=== PATIENT | female | born 1945 | race Caucasian/White ===

== ENCOUNTER 2017-12-20 12:19 | Outpatient (CLI) | payer MEDICARE ==
[2017-12-20 14:29] LABS: Hemoglobin 14.7 g/dL (12.0-16.0); Mean Corpuscular HGB CONC 32.4 g/dL (32.0-36.0); Mean Corpuscular Hemoglobin 34.6 pg (27.0-31.0); Mean Platelet Volume 10.6 fL (7.4-10.4); Platelet Count 221 thou/uL (130-400); RBC Distribution Width 14.5 % (11.5-14.5); Red Blood Cell (RBC) Count 4.25 mill/uL (4.20-5.40); White Blood Cell (WBC) Count 6.9 thou/uL (4.8-10.8)
[2017-12-20 14:49] LABS: Anion Gap 12 mmol/L (10-20); BUN (Urea Nitrogen) 8 mg/dL (9.8-20.1); Calc. Creatinine Clearance 0 mL/min (70-130); Calcium 9.4 mg/dL (7.8-10.44); Carbon Dioxide 23 mmol/L (23-31); Chloride 106 mmol/L (98-107); Estimated GFR-MDRD 72; Glucose 93 mg/dL (83-110); Potassium 4.4 mmol/L (3.5-5.1); Sodium 137 mmol/L (136-145)
== END 2017-12-20 12:20 | disposition home or self-care (01) ==
LOC: LABBT 12:19
PROVIDERS: ATTEND Orthopaedic Surgery
DX: Z01.812 Encounter for preprocedural laboratory examination (principal); M17.12 Unilateral primary osteoarthritis, left knee
CPT/HCPCS: 80048; 85027; 86850; 86900; 86901; 87081

== ENCOUNTER 2017-12-27 05:43 | Inpatient (IN) | payer MEDICARE ==
[2017-12-26 09:11] VITALS: BMI 31.8
[2017-12-27] MEDS ORDERED: Clindamycin/D5W 600 mg/50 ml Premix Bag ONE (05:58)
[2017-12-27] MEDS ORDERED: Fentanyl 100 MCG/2 ML VIAL ONE ×3 (06:14→11:46)
[2017-12-27] MEDS ORDERED: Ropivacaine 0.2% HCl/PF 20 ML ONE (06:14)
[2017-12-27] MEDS ORDERED: Midazolam HCl 2 mg/2 ml Vial ONE (06:14)
[2017-12-27] MEDS ORDERED: Vancomycin HCl 1.5 GM in Sodium Chloride 0.9% 250 ML 300 ML IVPB SCH ×3 (06:15→20:00)
[2017-12-27 06:38] LABS: PTT 26.7 SEC (22.9-36.1)
[2017-12-27 06:43] LABS: Prothrombin Time 12.9 SEC (12.0-14.7)
[2017-12-27] MEDS ORDERED: Bupivacaine/Epinephrine 0.25% 30 ML VIAL ONE (06:51)
[2017-12-27] MEDS ORDERED: Promethazine HCl 25 MG/ML VIAL IM PRN ×3 (07:11→09:07)
[2017-12-27] MEDS ORDERED: traMADol HCl 50 MG TAB PO PRN ×3 (07:11→09:07)
[2017-12-27] MEDS ORDERED: HYDROcodone/Acetaminophen 5/325 mg Tablet PO PRN (07:11)
[2017-12-27] MEDS ORDERED: Ondansetron HCl/PF 4 MG/2 ML Vial IVP PRN ×3 (07:11→09:07)
[2017-12-27] MEDS ORDERED: Zolpidem Tartrate 5 MG TAB PO PRN ×2 (07:11→09:07)
[2017-12-27] MEDS ORDERED: Fentanyl 100 MCG/2 ML VIAL IV PRN (07:12)
[2017-12-27] MEDS ORDERED: Promethazine HCl 25 MG/ML VIAL SLOW IVP PRN (07:57)
[2017-12-27] MEDS ORDERED: Morphine 10 MG/ML VIAL ONE (08:00)
[2017-12-27] MEDS ORDERED: Ferrous Gluconate 324 MG TAB PO SCH (09:07)
[2017-12-27] MEDS ORDERED: Senokot S 8.6-50 MG TAB PO SCH (09:07)
[2017-12-27] MEDS ORDERED: HYDROcodone/Acetaminophen 10/325 mg Tablet PO PRN ×2 (09:07)
[2017-12-27] MEDS ORDERED: Multivitamin W/ Minerals 1 TAB PO SCH (09:07)
[2017-12-27] MEDS ORDERED: Fentanyl 100 MCG/2 ML VIAL SLOW IVP PRN ×2 (09:07)
[2017-12-27] MEDS ORDERED: Acetaminophen 325 MG TAB PO PRN (09:07)
[2017-12-27] MEDS ORDERED: diphenhydrAMINE 25 MG CAP PO PRN (09:07)
[2017-12-27] MEDS ORDERED: Ketorolac Tromethamine 30 MG/ML VIAL ONE (09:15)
--- NOTE | 2017-12-27 10:59 | OP ---
DATE OF PROCEDURE: 12/27/2017 PREOPERATIVE DIAGNOSIS: Left knee osteoarthritis. POSTOPERATIVE DIAGNOSIS: Left knee osteoarthritis. PROCEDURE PERFORMED: Left total knee arthroplasty. STAFF: Laurent Jefferson M.D. ENVIRONMENTAL CONSULTANT: Socrates Wade PA-C. ANESTHESIA: [place]. The patient received a LMA with an adductor canal catheter with single sciatic shot. ESTIMATED BLOOD LOSS: 100 mL. ANTIBIOTICS: Clindamycin 600, vancomycin 1.5 grams. TOURNIQUET TIME: 63 minutes at 300 mmHg. The patient received TXA 1 gram. IMPLANTS: Misael Triathlon size 4 femur, size 3 tibia, 9 CS X3 poly and S27 patella. COMPLICATIONS: None. HISTORY OF PRESENT ILLNESS: Ms. Carter is a pleasant 72-year-old female who is well known to my practice. The patient had knee pain treated with injections which did not give her complete relief. The patient had desired a left knee arthroplasty. She understood the risks and benefits to include pain, scar, bleeding, infection, damage to vital structures, decreased range or strength, failure of the procedure, continued pain despite surgical intervention. The patient understood the risks and benefits and elected to proceed. PROCEDURE IN DETAIL: Timeout was performed designating the patient's left lower extremity as the operative site. Based on site, consents, markings, after completion of timeout, the patient's left lower extremity was prepped and draped in sterile fashion. Tourniquet was brought up for a total of 63 minutes. The patient had anterior medial patellar arthrotomy. We did our medial soft tissue release and excised the patella, everted patella, mapped out the distal femur, cut 0 degrees varus valgus 8-8 with 4 degrees of anterior slope. We then removed the portion of lateral meniscus, placed our external rotation guide in place, pinned it at 3 degrees of external rotation in line with epicondylar axis. We sized to a 4, removed it, placed our 4 cutting block , cut anterior, posterior chamfer cuts. Removed bone, osteophytes. We then put our pickle fork in position taking a portion of lateral meniscus, released the PCL took down the ACL, exposed the tibia. We pinned our tray into place. We cut 4 degrees of slope 1 and 6 mm respectively. We removed this, I did take a rasp and reshaped on the medial side a little bit to help with our position of our implant. We then decompressed the medial osteophytes in the femoral gutter as well as the medial tibia. We placed lamina plant safety engineer, removed our medial and lateral menisci. We used our osteotomes to remove our bone fragments , decompressed the PCL released it. We then pinned our size 3 tibial tray into position based on the tibial shaft anterior 1/3 of the tibial tubercle, placed our 9 mm poly, placed our 4 femur. We had good tracking, slight of an extension which we released the PCL afterwards. We then everted patella, measured about 22, cut about 19-20, cut to 10 mm removed the excess bone. We then drilled, placed our S27 patella, it tracked well. Based on position I liked the overall alignment. We then removed our implants, we drilled our lugs for our femur, removed our implants, cut our keel for tibia. We washed. We cemented in our tibia, placed our poly, cemented our femur, removed excess cement, cemented our patella. We removed excess cement from this, we then washed the joint, removed excess cement, closed the arthrotomy with #2 Vicryl, 2 Quill, 0 Quill, 2-0 Quill, and glue. The tourniquet was let down at 63 minutes. The patient will be admitted to [facility] [facility] for postoperative protocol. GRISELDA
[2017-12-27] MEDS: Sodium Chloride 0.9% 1,000 ML IV SCH ×2 (11:52→18:09)
[2017-12-27] MEDS: Aspirin 81 mg Enteric Coated Tablet PO SCH ×2 (11:52→20:20)
[2017-12-27] MEDS: Clindamycin/D5W 600 MG in Premix Bag 1 BAG IVPB SCH ×2 (12:27→17:42)
[2017-12-27] MEDS: Ketorolac Tromethamine 30 MG/ML VIAL IVP SCH ×2 (12:30→17:42)
[2017-12-27] MEDS ORDERED: Milk Of Magnesia 30 ML UDCUP PO PRN (12:31)
[2017-12-27] MEDS ORDERED: Bisacodyl 10 MG SUPP PR PRN (12:31)
[2017-12-27] MEDS ORDERED: Chloraseptic Spray 180 ml Bottle PO PRN (12:31)
[2017-12-27] MEDS ORDERED: Mag-Al 1200 mg/1200 mg/30 ML UDCUP PO PRN (12:31)
[2017-12-27] MEDS ORDERED: hydrALAZINE 20 MG/ML VIAL SLOW IVP PRN (12:31)
[2017-12-27] MEDS ORDERED: Loperamide HCl 2 MG CAP PO PRN (12:31)
[2017-12-27] MEDS ORDERED: Ondansetron ODT 4 MG TAB PO PRN (12:31)
[2017-12-27] MEDS ORDERED: Artificial Tears 18 DROP/0.9 ML EA EYE PRN (12:31)
[2017-12-27] MEDS ORDERED: Sodium Chloride 0.65% Nasal 44 ML BOT EA NARE PRN (12:31)
[2017-12-27] MEDS ORDERED: Eucerin (Mineral Oil/Petrolatum,White) 30 gm Jar TOP PRN (12:31)
--- NOTE | 2017-12-27 13:20 | RAD ---
PORTABLE LEFT KNEE 2 VIEWS: HISTORY: Postop total left knee replacement. FINDINGS: There are recent postop changes of total knee arthroplasty in good position and alignment. Soft tiss ue air is present. POS: H
--- NOTE | 2017-12-27 13:27 | PDOC.PN ---
- Subjective Encounter Start Date: 12/27/17 Encounter Start Time: 13:00 -: old records requested/rev Patient seen and examined. No new complaints. No overnight events - Objective Resuscitation Status: Resuscitation Status FULL:Full Resuscitation MAR Reviewed: Yes Vital Signs & Weight: Vital Signs (12 hours) Temp Pulse Resp BP 12/27/17 12:20 97.2 F L 80 16 114/78 Weight Weight 180 lb I&O: 12/26/17 12/27/17 12/28/17 06:59 06:59 06:59 Intake Total 625 Output Total 600 Balance 25 Radiology Reviewed by me: Yes (knee xray) EKG Reviewed by me: Yes (nsr) Phys Exam - Physical Examination Constitutional: NAD HEENT: PERRLA, moist MMs, sclera anicteric Neck: no JVD, supple Respiratory: no wheezing, no rales, no rhonchi Cardiovascular: RRR, no significant murmur, no rub Gastrointestinal: soft, non-tender, no distention, positive bowel sounds Musculoskeletal: no edema, pulses present left knee with dressing, nerve block+, sparks+ Neurological: non-focal, normal sensation, moves all 4 limbs Lymphatic: no nodes Psychiatric: normal affect, A&O x 3 Skin: no rash, normal turgor, cap refill <2 seconds Dx/Plan (1) Status post total left knee replacement Code(s): Z96.652 - PRESENCE OF LEFT ARTIFICIAL KNEE JOINT Status: Acute (2) Anxiety and depression Code(s): F41.9 - ANXIETY DISORDER, UNSPECIFIED; F32.9 - MAJOR DEPRESSIVE DISORDER, SINGLE EPISODE, UNSPECIFIED Status: Chronic (3) GERD (gastroesophageal reflux disease) Code(s): K21.9 - GASTRO-ESOPHAGEAL REFLUX DISEASE WITHOUT ESOPHAGITIS Status: Chronic (4) Hiatal hernia Code(s): K44.9 - DIAPHRAGMATIC HERNIA WITHOUT OBSTRUCTION OR GANGRENE Status: Chronic (5) Obesity (BMI 30.0-34.9) Code(s): E66.9 - OBESITY, UNSPECIFIED Status: Chronic - Plan cont current plan of care, plan discussed w/ family, PT/OT, DVT proph w/SCDs * code status discussed, pt is full code and her is MPOA * continue aspirin for DVT prophylaxis as per protocol * continue protonix for GI prophylaxis * nerve bloc as per anesthesia * PT/OT as per [facility] protocol treatment * Home medication reconciled * medication reviewed as below * symptomatic treatment. Review of Systems - Review of Systems Constitutional: negative: fever, chills, sweats, weakness, malaise, other ENT: negative: Ear Pain, Ear Discharge, Nose Pain, Nose Discharge, Nose Congestion, Mouth Pain, Mouth Swelling, Throat Pain, Throat Swelling, Other Respiratory: negative: Cough, Dry, Shortness of Breath, Hemoptysis, SOB with Excertion, Pleuritic Pain, Sputum, Wheezing Cardiovascular: negative: chest pain, palpitations, orthopnea, paroxysmal nocturnal dyspnea, edema, light headedness, other Gastrointestinal: negative: Nausea, Vomiting, Abdominal Pain, Diarrhea, Constipation, Melena, Hematochezia, Other Genitourinary: negative: Dysuria, Frequency, Incontinence, Hematuria, Retention , Other Musculoskeletal: negative: Neck Pain, Shoulder Pain, Arm Pain, Back Pain, Hand Pain, Leg Pain, Foot Pain, Other Skin: negative: Rash, Lesions, Kofi, Bruising, Other - Medications/Allergies Allergies/Adverse Reactions: Allergies Allergy/AdvReac Type Severity Reaction Status Date / Time Penicillins Allergy Verified 12/26/17 09:12 Hibiclens Allergy Uncoded 12/26/17 09:33 Medications: Current Medications Acetaminophen (Tylenol) 650 mg PO Q4H PRN PRN Reason: MEYERS/ T > 101F; Mild Pain (1-3) Hydrocodone Bitart/Acetaminophen ([place] 5/325) 1 tab PO Q4H PRN PRN Reason: Mild Pain (1-3) Hydrocodone Bitart/Acetaminophen ([place] 5/325) 2 tab PO Q4H PRN PRN Reason: For Moderate Pain 4-6 Al Hydroxide/Mg Hydroxide (Maalox) 15 ml PO Q4H PRN PRN Reason: Heartburn or Indigestion Artificial Tears (Tears Naturale) 0 drop EA EYE PRN PRN PRN Reason: Dry Eyes Aspirin (Ecotrin) 81 mg PO BID [facility] Admin: 12/27/17 11:52 Dose: Not Given Bisacodyl (Dulcolax) 10 mg [place] DAILYPRN PRN PRN Reason: Constipation Diphenhydramine HCl (Benadryl) 25 mg PO Q6H PRN PRN Reason: Itching Divalproex Sodium (Depakote Er) 500 mg PO [facility] Fentanyl (Sublimaze) 50 mcg IV Q1H PRN PRN Reason: BREAKTHROUGH PAIN Ferrous Gluconate (Fergon) 324 mg PO BID [facility] Hydralazine HCl (Apresoline) 10 mg SLOW IVP Q4H PRN PRN Reason: Systolic BP > 180 Bupivacaine HCl 50 ml/ Sodium (Chloride) 100 mls @ 0 mls/hr NERVE BLCK INF [facility] PRN Reason: As Directed Sodium Chloride (Normal Saline 0.9%) 1,000 mls @ 100 mls/hr IV .Q10H [facility] Last Admin: 12/27/17 11:52 Dose: Not Given Clindamycin Phosphate/Dextrose (600 mg/ Device) 50 mls @ 100 mls/hr IVPB Q6HR [facility] Stop: 12/28/17 00:28 Last Admin: 12/27/17 12:27 Dose: 50 mls Vancomycin HCl 1.5 gm/ Sodium (Chloride) 300 mls @ 200 mls/hr IVPB 1800 [facility] Stop: 12/27/17 21:00 Iron/Minerals/Multivitamins (Theragran M) 1 tab PO DAILY [facility] Ketorolac Tromethamine (Toradol) 15 mg IVP Q6HR [facility] Stop: 12/29/17 06:01 Last Admin: 12/27/17 12:30 Dose: 15 mg Loperamide HCl (Imodium) 2 mg PO PRN PRN PRN Reason: Diarrhea/Loose Stools Magnesium Hydroxide (Milk Of Magnesium) 30 ml PO DAILYPRN PRN PRN Reason: Constipation Mineral Oil/White Petrolatum (Eucerin Cream) 0 gm TOP BIDPRN PRN PRN Reason: Dry Skin Ondansetron HCl (Zofran) 4 mg IVP Q6H PRN PRN Reason: Nausea/Vomiting Ondansetron HCl (Zofran Odt) 4 mg PO Q6H PRN PRN Reason: Nausea/Vomiting Pantoprazole Sodium (Protonix) 40 mg PO QAM [facility] Phenol (Chloraseptic [place] 180 Ml Bot) 0 ml PO PRN PRN PRN Reason: Sore Throat Polyethylene Glycol (Miralax) 17 gm PO QAM [facility] Promethazine HCl (Phenergan) 12.5 mg IM Q4H PRN PRN Reason: Nausea Quetiapine Fumarate (Seroquel) 100 mg PO HS [facility] Senna/Docusate Sodium (Senokot S) 2 tab PO BID [facility] Sodium Chloride (Flush - Normal Saline) 10 ml IVF Q12HR [facility] Last Admin: 12/27/17 11:51 Dose: Not Given Sodium Chloride (Flush - Normal Saline) 10 ml IVF PRN PRN PRN Reason: Saline Flush Sodium Chloride ([place] Nasal [place] 0.65%) 0 ml EA NARE QIDPRN PRN PRN Reason: Nasal Congestion Topiramate (Topamax) 50 mg PO HS [facility] Tramadol HCl (Ultram) 50 mg PO Q6H PRN PRN Reason: Mild Pain (1-3) Tramadol HCl (Ultram) 100 mg PO Q6H PRN PRN Reason: Moderate Pain 4-6 Zolpidem Tartrate (Ambien) 5 mg PO HSPRN PRN PRN Reason: Insomnia History of Present Illnes - History of Present Illness Reason for Visit: elective admission for left TKR History of Present Illness: admitted for left TKR pt failed conservative outpt treatment currently pain free no chest pain No UTI symptoms - Past Medical History Gastrointestinal: GERD (Hiatal Hernia, ) Psych: Anxiety, Bipolar, Depression, Panic Musculoskeletal: Osteoarthritis - Past Surgical History Past Surgical History: Appendectomy, Hysterectomy, Other (sonam fundoplication for hiatal hernia, colonoscopy, right great toe fracture repair,oophrectomy), Total Knee Replacement (left) - Past Family History Family History: CAD, DM, Hypertension - Past Social History Smoke: No Alcohol: None Drugs: None Lives: With Family Domestic Violence: Negative
[2017-12-27] MEDS ORDERED: Ropivacaine 0.5% HCl/PF (150 MG/30 ML VIAL) ONE (15:33)
[2017-12-27] MEDS ORDERED: Lidocaine 1% PF 5 ML VIAL ONE (16:00)
[2017-12-27] MEDS ORDERED: PROPOFOL 200 MG/20 ML VIAL ONE (16:00)
[2017-12-27] MEDS: HYDROcodone/Acetaminophen 5/325 mg Tablet PO PRN ×2 (16:40→20:35)
[2017-12-27] MEDS: Ferrous Gluconate 324 MG TAB PO SCH (20:19)
[2017-12-27] MEDS: Senokot S 8.6-50 MG TAB PO SCH (20:19)
[2017-12-27] MEDS: Topiramate 25 MG TAB PO SCH (20:20)
[2017-12-27] MEDS: Bupivacaine 0.5% 50 ML in Sodium Chloride 0.9% 50 ML NERVE BLCK SCH (20:37)
[2017-12-27] MEDS ORDERED: Famotidine 20 MG TAB PO SCH (21:00)
[2017-12-28] MEDS: Ketorolac Tromethamine 30 MG/ML VIAL IVP SCH ×5 (00:10→23:17)
[2017-12-28] MEDS: Clindamycin/D5W 600 MG in Premix Bag 1 BAG IVPB SCH (00:11)
[2017-12-28] MEDS: Sodium Chloride 0.9% 1,000 ML IV SCH ×2 (04:12→14:45)
[2017-12-28 05:39] LABS: Hemoglobin 10.9 g/dL (12.0-16.0); Mean Corpuscular HGB CONC 33.7 g/dL (32.0-36.0); Mean Corpuscular Hemoglobin 35.6 pg (27.0-31.0); Mean Platelet Volume 10.5 fL (7.4-10.4); Platelet Count 149 thou/uL (130-400); Red Blood Cell (RBC) Count 3.07 mill/uL (4.20-5.40); White Blood Cell (WBC) Count 7.1 thou/uL (4.8-10.8)
[2017-12-28] MEDS: HYDROcodone/Acetaminophen 5/325 mg Tablet PO PRN ×3 (08:04→22:46)
[2017-12-28] MEDS: Aspirin 81 mg Enteric Coated Tablet PO SCH ×2 (08:06→20:56)
[2017-12-28] MEDS: Folic Acid 1 MG TAB PO SCH (08:06)
[2017-12-28] MEDS: Ferrous Gluconate 324 MG TAB PO SCH ×2 (08:06→20:55)
[2017-12-28] MEDS: Cyanocobalamin (Vitamin B-12) 1,000 MCG TAB PO SCH (08:06)
[2017-12-28] MEDS: Pantoprazole 40 MG GRANULES PACKET PO SCH (08:07)
[2017-12-28] MEDS: Multivitamin W/ Minerals 1 TAB PO SCH (08:07)
[2017-12-28] MEDS: Senokot S 8.6-50 MG TAB PO SCH ×2 (08:07→20:57)
[2017-12-28] MEDS: Polyethylene Glycol 3350 17 GM Packet PO SCH (08:07)
[2017-12-28] MEDS: Bupivacaine 0.5% 50 ML in Sodium Chloride 0.9% 50 ML NERVE BLCK SCH ×2 (09:14→16:10)
--- NOTE | 2017-12-28 10:37 | PDOC.PN ---
- Subjective Encounter Start Date: 12/28/17 Encounter Start Time: 08:20 -: old records requested/rev Patient seen and examined. No new complaints. No overnight events - Objective Resuscitation Status: Resuscitation Status FULL:Full Resuscitation MAR Reviewed: Yes Vital Signs & Weight: Vital Signs (12 hours) Temp Pulse Resp BP Pulse Ox 12/28/17 07:30 98.5 F 88 20 108/74 96 12/28/17 04:00 98.4 F 81 18 106/71 95 12/28/17 00:00 97.6 F 74 18 105/73 94 L Weight Weight 180 lb I&O: 12/27/17 12/28/17 12/29/17 06:59 06:59 06:59 Intake Total 3232.0 Output Total 1800 Balance 1432.0 Result Diagrams: 12/28/17 04:37 Phys Exam - Physical Examination Constitutional: NAD HEENT: PERRLA, moist MMs, sclera anicteric Neck: no JVD, supple Respiratory: no wheezing, no rales, no rhonchi Cardiovascular: RRR, no significant murmur, no rub Gastrointestinal: soft, non-tender, no distention, positive bowel sounds Musculoskeletal: no edema, pulses present left knee with dressing, sparks+, nerve block+ Neurological: non-focal, normal sensation, moves all 4 limbs Psychiatric: normal affect, A&O x 3 Skin: no rash, normal turgor Dx/Plan (1) Status post total left knee replacement Code(s): Z96.652 - PRESENCE OF LEFT ARTIFICIAL KNEE JOINT Status: Acute (2) Anxiety and depression Code(s): F41.9 - ANXIETY DISORDER, UNSPECIFIED; F32.9 - MAJOR DEPRESSIVE DISORDER, SINGLE EPISODE, UNSPECIFIED Status: Chronic (3) GERD (gastroesophageal reflux disease) Code(s): K21.9 - GASTRO-ESOPHAGEAL REFLUX DISEASE WITHOUT ESOPHAGITIS Status: Chronic (4) Hiatal hernia Code(s): K44.9 - DIAPHRAGMATIC HERNIA WITHOUT OBSTRUCTION OR GANGRENE Status: Chronic (5) Obesity (BMI 30.0-34.9) Code(s): E66.9 - OBESITY, UNSPECIFIED Status: Chronic (6) Macrocytic anemia Code(s): D53.9 - NUTRITIONAL ANEMIA, UNSPECIFIED Status: Acute - Plan cont current plan of care, plan discussed w/ family, PT/OT, DVT proph w/SCDs * add folic acid and vitamin B12 for macrocytosis * discussed with * continue aspirin for DVT prophylaxis as per protocol * continue protonix for GI prophylaxis * nerve bloc as per anesthesia * PT/OT as per [facility] protocol treatment * Home medication reconciled * medication reviewed as below * symptomatic treatment. * pain controlled with pain meds * today status changed to inpt * she may need rehab placement . Review of Systems - Review of Systems Constitutional: negative: fever, chills, sweats, weakness, malaise, other ENT: negative: Ear Pain, Ear Discharge, Nose Pain, Nose Discharge, Nose Congestion, Mouth Pain, Mouth Swelling, Throat Pain, Throat Swelling, Other Respiratory: negative: Cough, Dry, Shortness of Breath, Hemoptysis, SOB with Excertion, Pleuritic Pain, Sputum, Wheezing Cardiovascular: negative: chest pain, palpitations, orthopnea, paroxysmal nocturnal dyspnea, edema, light headedness, other Gastrointestinal: negative: Nausea, Vomiting, Abdominal Pain, Diarrhea, Constipation, Melena, Hematochezia, Other Genitourinary: negative: Dysuria, Frequency, Incontinence, Hematuria, Retention , Other Musculoskeletal: negative: Neck Pain, Shoulder Pain, Arm Pain, Back Pain, Hand Pain, Leg Pain, Foot Pain, Other Skin: negative: Rash, Lesions, Kofi, Bruising, Other - Medications/Allergies Allergies/Adverse Reactions: Allergies Allergy/AdvReac Type Severity Reaction Status Date / Time Penicillins Allergy Verified 12/26/17 09:12 Hibiclens Allergy Uncoded 12/26/17 09:33 Medications: Current Medications Acetaminophen (Tylenol) 650 mg PO Q4H PRN PRN Reason: MEYERS/ T > 101F; Mild Pain (1-3) Hydrocodone Bitart/Acetaminophen ([place] 5/325) 1 tab PO Q4H PRN PRN Reason: Mild Pain (1-3) Hydrocodone Bitart/Acetaminophen ([place] 5/325) 2 tab PO Q4H PRN PRN Reason: For Moderate Pain 4-6 Last Admin: 12/28/17 08:04 Dose: 2 tab Al Hydroxide/Mg Hydroxide (Maalox) 15 ml PO Q4H PRN PRN Reason: Heartburn or Indigestion Artificial Tears (Tears Naturale) 0 drop EA EYE PRN PRN PRN Reason: Dry Eyes Aspirin (Ecotrin) 81 mg PO BID [facility] Last Admin: 12/28/17 08:06 Dose: 81 mg Bisacodyl (Dulcolax) 10 mg [place] DAILYPRN PRN PRN Reason: Constipation Cyanocobalamin (Vitamin B-12) 1,000 mcg PO DAILY [facility] Last Admin: 12/28/17 08:06 Dose: 1,000 mcg Diphenhydramine HCl (Benadryl) 25 mg PO Q6H PRN PRN Reason: Itching Divalproex Sodium (Depakote Er) 500 mg PO HS [facility] Last Admin: 12/27/17 20:16 Dose: 500 mg Fentanyl (Sublimaze) 50 mcg IV Q1H PRN PRN Reason: BREAKTHROUGH PAIN Ferrous Gluconate (Fergon) 324 mg PO BID [facility] Last Admin: 12/28/17 08:06 Dose: 324 mg Folic Acid (Folvite) 1 mg PO DAILY [facility] Last Admin: 12/28/17 08:06 Dose: 1 mg Hydralazine HCl (Apresoline) 10 mg SLOW IVP Q4H PRN PRN Reason: Systolic BP > 180 Bupivacaine HCl 50 ml/ Sodium (Chloride) 100 mls @ 0 mls/hr NERVE BLCK INF [facility] PRN Reason: As Directed Last Admin: 12/28/17 09:14 Dose: 50 mls Sodium Chloride (Normal Saline 0.9%) 1,000 mls @ 100 mls/hr IV .Q10H [facility] Last Admin: 12/28/17 04:12 Dose: Not Given Iron/Minerals/Multivitamins (Theragran M) 1 tab PO DAILY [facility] Last Admin: 12/28/17 08:07 Dose: 1 tab Ketorolac Tromethamine (Toradol) 15 mg IVP Q6HR [facility] Stop: 12/29/17 06:01 Last Admin: 12/28/17 05:18 Dose: 15 mg Loperamide HCl (Imodium) 2 mg PO PRN PRN PRN Reason: Diarrhea/Loose Stools Magnesium Hydroxide (Milk Of Magnesium) 30 ml PO DAILYPRN PRN PRN Reason: Constipation Mineral Oil/White Petrolatum (Eucerin Cream) 0 gm TOP BIDPRN PRN PRN Reason: Dry Skin Ondansetron HCl (Zofran) 4 mg IVP Q6H PRN PRN Reason: Nausea/Vomiting Ondansetron HCl (Zofran Odt) 4 mg PO Q6H PRN PRN Reason: Nausea/Vomiting Pantoprazole Sodium (Protonix) 40 mg PO [facility] Last Admin: 12/28/17 08:07 Dose: 40 mg Phenol (Chloraseptic [place] 180 Ml Bot) 0 ml PO PRN PRN PRN Reason: Sore Throat Polyethylene Glycol (Miralax) 17 gm PO [facility] Last Admin: 12/28/17 08:07 Dose: 17 gm Promethazine HCl (Phenergan) 12.5 mg IM Q4H PRN PRN Reason: Nausea Quetiapine Fumarate (Seroquel) 100 mg PO [facility] Last Admin: 12/27/17 20:20 Dose: 100 mg Senna/Docusate Sodium (Senokot S) 2 tab PO BID [facility] Last Admin: 12/28/17 08:07 Dose: 2 tab Sodium Chloride (Flush - Normal Saline) 10 ml IVF Q12HR [facility] Last Admin: 12/28/17 08:07 Dose: 10 ml Sodium Chloride (Flush - Normal Saline) 10 ml IVF PRN PRN PRN Reason: Saline Flush Sodium Chloride ([place] Nasal [place] 0.65%) 0 ml EA NARE QIDPRN PRN PRN Reason: Nasal Congestion Topiramate (Topamax) 50 mg PO [facility] Last Admin: 12/27/17 20:20 Dose: 50 mg Tramadol HCl (Ultram) 50 mg PO Q6H PRN PRN Reason: Mild Pain (1-3) Tramadol HCl (Ultram) 100 mg PO Q6H PRN PRN Reason: Moderate Pain 4-6 Zolpidem Tartrate (Ambien) 5 mg PO HSPRN PRN PRN Reason: Insomnia
[2017-12-28] MEDS: Topiramate 25 MG TAB PO SCH (20:56)
[2017-12-29] MEDS: Sodium Chloride 0.9% 1,000 ML IV SCH (00:30)
[2017-12-29 05:27] LABS: Hemoglobin 11.3 g/dL (12.0-16.0); Mean Corpuscular HGB CONC 32.2 g/dL (32.0-36.0); Mean Corpuscular Hemoglobin 33.4 pg (27.0-31.0); Platelet Count 160 thou/uL (130-400); RBC Distribution Width 14.3 % (11.5-14.5); Red Blood Cell (RBC) Count 3.37 mill/uL (4.20-5.40); White Blood Cell (WBC) Count 8.7 thou/uL (4.8-10.8)
[2017-12-29] MEDS: Bupivacaine 0.5% 50 ML in Sodium Chloride 0.9% 50 ML NERVE BLCK SCH (05:36)
[2017-12-29] MEDS: Ketorolac Tromethamine 30 MG/ML VIAL IVP SCH (05:37)
[2017-12-29] MEDS: Ferrous Gluconate 324 MG TAB PO SCH (08:20)
[2017-12-29] MEDS: Pantoprazole 40 MG GRANULES PACKET PO SCH (08:20)
[2017-12-29] MEDS: Cyanocobalamin (Vitamin B-12) 1,000 MCG TAB PO SCH (08:20)
[2017-12-29] MEDS: Multivitamin W/ Minerals 1 TAB PO SCH (08:20)
[2017-12-29] MEDS: Aspirin 81 mg Enteric Coated Tablet PO SCH (08:20)
[2017-12-29] MEDS: Folic Acid 1 MG TAB PO SCH (08:20)
[2017-12-29] MEDS: Polyethylene Glycol 3350 17 GM Packet PO SCH (08:21)
[2017-12-29] MEDS: Senokot S 8.6-50 MG TAB PO SCH (08:21)
[2017-12-29 08:26] VITALS: BP 122/78; TEMP 98.5
[2017-12-29] MEDS: HYDROcodone/Acetaminophen 5/325 mg Tablet PO PRN (10:05)
== END 2017-12-29 10:55 | disposition home or self-care (01) | DRG 470 ==
LOC: SDC 05:43 → SJJU 12:08 → OBSVTOIN 15:41
PROVIDERS: ADMIT Orthopaedic Surgery; ATTEND Orthopaedic Surgery
PROC: 0SRD0J9 Replacement of Left Knee Joint with Synthetic Substitute, Cemented, Open Approach (ICD-10-PCS; principal; 2017-12-27)
DX: M17.12 Unilateral primary osteoarthritis, left knee (principal); D64.9 Anemia, unspecified; E66.9 Obesity, unspecified; F31.9 Bipolar disorder, unspecified; Z87.442 Personal history of urinary calculi; H40.9 Unspecified glaucoma; Z79.899 Other long term (current) drug therapy; Z88.0 Allergy status to penicillin; K21.9 Gastro-esophageal reflux disease without esophagitis; F41.9 Anxiety disorder, unspecified; K44.9 Diaphragmatic hernia without obstruction or gangrene; Z88.8 Allergy status to other drugs, medicaments and biological substances; G47.00 Insomnia, unspecified; Z87.440 Personal history of urinary (tract) infections; Z68.31 Body mass index [BMI] 31.0-31.9, adult
CPT/HCPCS: 36415; 85027; 85610; 85730; A4216; C1713; C1776; G8978-GP-CK; G8979-GP-CJ; G8987-GO-CJ; G8988-GO-CI; J1885; J2001; J2250; J2270; J2704; J2795; J3010; J3370; J3490; J7050

== ENCOUNTER 2018-12-10 13:54 | Inpatient (IN) | payer MEDICARE ==
[2018-12-10] MEDS ORDERED: Ondansetron PF 4 MG/2 ML Vial ONE ×2 (14:04→14:18)
[2018-12-10] MEDS ORDERED: Pantoprazole 40 MG VIAL ONE (14:18)
[2018-12-10 14:43] LABS: #Lymphocytes 1.8 thou/uL (1.20-3.40); #Monocytes 0.3 thou/uL (0.11-0.59); #Neutrophils 11.5 thou/uL (1.40-6.50); %Basophils 0.2 % (0.0-1.0); %Eosinophils 0.3 % (0.0-10.0); %Lymphocytes 13.2 % (21.0-51.0); %Monocytes 2.3 % (0.0-10.0); %Neutrophils 84.1 % (42.0-75.0); Mean Corpuscular Hemoglobin 33.9 pg (27.0-31.0); Mean Platelet Volume 9.3 fL (7.4-10.4); Platelet Count 284 thou/uL (130-400); RBC Distribution Width 14.8 % (11.5-14.5); Red Blood Cell (RBC) Count 2.95 mill/uL (4.20-5.40); White Blood Cell (WBC) Count 13.7 thou/uL (4.8-10.8)
[2018-12-10 15:00] LABS: Anisocytosis SLIGHT = 6-15 cells (100X) (0-5/hpf); MDiff Complete? YES; Macrocytosis SLIGHT = 6-15 cells (100X) (0-5/hpf); Platelet Morphology Comment Appears Adequate; Polychromasia SLIGHT = 2-3 cells (100X) (0-2/hpf)
[2018-12-10 17:44] LABS: Lactic Acid 2.9 mmol/L (0.5-2.2)
[2018-12-10] MEDS ORDERED: methylPREDNISolone Sod Succ/PF 125 MG/2 ML VIAL ONE (21:19)
[2018-12-10] MEDS ORDERED: Fentanyl 100 MCG/2 ML VIAL ONE (21:19)
[2018-12-10] MEDS ORDERED: diphenhydrAMINE 50 MG/ML VIAL ONE (21:19)
[2018-12-10 22:26] LABS: Hemoglobin 10.8 g/dL (12.0-16.0)
[2018-12-11] MEDS: Pantoprazole 80 MG, Admixture Fee 1 EACH in Sodium Chloride 0.9% 100 ML IVPB SCH ×2 (00:29→22:40)
[2018-12-11] MEDS: Sodium Chloride 0.9% 1,000 ML IV SCH ×2 (00:30→20:56)
[2018-12-11] MEDS: Topiramate 25 MG TAB PO SCH ×2 (00:32→21:52)
[2018-12-11] MEDS: Morphine 4 MG/ML VIAL SLOW IVP PRN ×5 (01:11→22:40)
--- NOTE | 2018-12-11 01:18 | HP ---
CHIEF COMPLAINT: Melena. HISTORY OF PRESENT ILLNESS: The patient is a 73-year-old female with past medical history of peptic ulcers in the past. She also has a history of bipolar, glaucoma, and history of malaria in she presents to the hospital with melena. The patient states that she has a history of chronic dysphagia with certain foods. She was feeling unwell for the past 3 or 4 days, felt very nauseous, was unable to keep anything down. She has been feeling dizzy and lightheaded. This morning, the patient stated that she had a very large dark stool, so she came into the ER for further evaluation. The patient states that she has been taking her medications as prescribed including her PPI. She denies use of any NSAIDs. PAST MEDICAL HISTORY: She has a history of panic disorder and she has a history of malaria in she has a history of hiatal hernia, bipolar, glaucoma, gastric ulcer bleed, and kidney stones. PAST SURGICAL HISTORY: She has had appendectomy in 2003, a colonoscopy, hysterectomy at 27 years of age. She has also had oophorectomy, hiatal hernia repair, and also had recurrent hiatal hernia repair with some scar tissue removal, and right great toe dislocation. FAMILY HISTORY: Father , CAD, diagnosed with diabetes. Mother had AAA, also . SOCIAL HISTORY: She is a nonsmoker. Does not drink any alcohol or drug use. The patient is a full code. Lives with . ALLERGIES: SHE IS ALLERGIC TO PENICILLIN, SHE GETS HIVES AND SWELLING. MEDICATIONS: 1. She takes Depakote 500 mg twice a day. 2. She takes Topamax 50 mg at bedtime. 3. She takes Protonix q.a.m. 4. Ferrous gluconate 324 b.i.d. REVIEW OF SYSTEMS: All negative except for the ones mentioned above in the HPI. PHYSICAL EXAMINATION: VITAL SIGNS: Her temperature is 98.8, her heart rate is in the one-teens, and blood pressure is 110/60, 98% on room air. GENERAL: The patient is awake, alert, and oriented x3, does not appear in distress. HEENT: Normocephalic and atraumatic. No lymphadenopathy noted. However, the patient does appear pale. Pupils are equal and reactive to light. CV: S1 and S2 present. No murmurs, rubs, or gallops. LUNGS: Clear to auscultation. No rhonchi or wheezes noted. ABDOMEN: Soft. Bowel sounds are present x2. She has significant pain upon palpation to her epigastric area and more pain to her epigastric area compared to below her umbilical area. EXTREMITIES: No edema. Pedal pulses present x2. NEUROVASCULAR: No focal deficits noted. SKIN: No cuts, lesions, or bruises noted. LABORATORY RESULTS: As of the following; WBCs of 13.7, hemoglobin of 10.0, initially it was 11.5, hematocrit of 31.3, platelets of 284. Chemistry; sodium of 134, potassium 4.4, BUN of 26, creatinine of 1.17. Her previous BUN was 8. Her lactic acid at [place] was 5.5. ASSESSMENT AND PLAN: The patient is a very pleasant, 73-year-old female who presents to the hospital with complaints of melena. 1. Melena, most likely secondary to her possible peptic ulcer. We will keep her n.p.o., started on IV fluids. Will type and screen her. The patient appears to be tachycardic and hypotensive. We will check H and Hs every 6. She appears clinically very pale. I will also go ahead and transfuse her 1 unit since she stated that her bowel movement that she had was very large and was very dark, and she has been feeling dizzy for the past couple of days. I will also continue the PPI. 2. Bipolar disorder. She is n.p.o. We will hold her valproic acid for now. May resume it once she undergoes the EGD and she uses it for bipolar disorder. 3. Deep venous thrombosis prophylaxis. We will put the patient on sequential compression devices. Job ID: [id number]
[2018-12-11 02:15] VITALS: BMI 33.5
[2018-12-11 02:54] LABS: Hemoglobin 9.8 g/dL (12.0-16.0)
[2018-12-11 06:03] LABS: Anion Gap 11 mmol/L (10-20); BUN (Urea Nitrogen) 31 mg/dL (9.8-20.1); Calc. Creatinine Clearance 92 mL/min (70-130); Calcium 8.9 mg/dL (7.8-10.44); Carbon Dioxide 16 mmol/L (23-31); Chloride 116 mmol/L (98-107); Estimated GFR-MDRD 76; Glucose 126 mg/dL (83-110); Potassium 5.1 mmol/L (3.5-5.1); Sodium 138 mmol/L (136-145)
[2018-12-11 07:37] LABS: Hemoglobin 9.4 g/dL (12.0-16.0); Mean Corpuscular HGB CONC 31.5 g/dL (32.0-36.0); Mean Corpuscular Hemoglobin 31.7 pg (27.0-31.0); Mean Platelet Volume 8.9 fL (7.4-10.4); Platelet Count 276 thou/uL (130-400); RBC Distribution Width 17.2 % (11.5-14.5); Red Blood Cell (RBC) Count 2.96 mill/uL (4.20-5.40); White Blood Cell (WBC) Count 11.1 thou/uL (4.8-10.8)
[2018-12-11 08:02] LABS: Band 1 % (5-11); Eosinophils 4 % (0-10); Lymphocytes 16 % (21-51); MDiff Complete? YES; Monocytes 2 % (0-10); Neutrophil 77 % (42-75); Nucleated RBC 2 % (0); Platelet Morphology Comment Appears Adequate; Polychromasia SLIGHT = 2-3 cells (100X) (0-2/hpf)
[2018-12-11] MEDS: Folic Acid 1 MG TAB PO SCH (09:07)
[2018-12-11] MEDS ORDERED: Iothalamate Meglumine 60% 50 ML VIAL FS ONE (09:35)
[2018-12-11] MEDS ORDERED: PROPOFOL 200 MG/20 ML VIAL ONE (15:20)
--- NOTE | 2018-12-11 16:19 | PDOC.PN ---
- Subjective Encounter Start Date: 12/11/18 Encounter Start Time: 10:15 Subjective: pt up in bed complains of pain to her epigastric area - Objective Resuscitation Status - Order Detail: 12/10/18 14:43 Resuscitation Status Routine Resuscitation Status: FULL: Full Resuscitation Vital Signs & Weight: Vital Signs (12 hours) Temp Pulse Resp BP BP Pulse Ox 12/11/18 07:50 98.1 F 94 18 128/61 98 12/11/18 04:59 98.6 F 88 20 116/65 97 Weight Weight 189 lb 4.8 oz I&O: 12/10/18 12/11/18 12/12/18 06:59 06:59 06:59 Intake Total 401 Output Total 600 Balance -199 Result Diagrams: 12/11/18 07:12 12/11/18 05:22 Phys Exam - Physical Examination Neck: no nodes, no JVD, supple, full ROM Respiratory: no wheezing, no rales, no rhonchi, wheezing present, clear to auscultation bilateral Cardiovascular: RRR, no significant murmur, no rub, gallop, irregular Gastrointestinal: soft, positive bowel sounds epigastric pain on palpation Dx/Plan (1) Melena Code(s): K92.1 - MELENA Status: Acute (2) Anxiety and depression Code(s): F41.9 - ANXIETY DISORDER, UNSPECIFIED; F32.9 - MAJOR DEPRESSIVE DISORDER, SINGLE EPISODE, UNSPECIFIED Status: Chronic (3) Obesity (BMI 30.0-34.9) Code(s): E66.9 - OBESITY, UNSPECIFIED Status: Chronic (4) Hiatal hernia Code(s): K44.9 - DIAPHRAGMATIC HERNIA WITHOUT OBSTRUCTION OR GANGRENE Status: Chronic (5) Bipolar 1 disorder Code(s): F31.9 - BIPOLAR DISORDER, UNSPECIFIED Status: Acute - Plan pt underwent egd no acute bleed -: if ok with gi will start pt on cl diet and advance as tolerated -: will continue her home meds * .
--- NOTE | 2018-12-11 18:11 | CON ---
DATE OF CONSULTATION: REASON FOR CONSULT: Reported hematemesis and melena, history of previous ulcer disease. HISTORY OF PRESENT ILLNESS: Ms. Carter is a 73-year-old female, who has been taking care of my partner, Dr. Kyle Tripathi in the past. She usually lives about half the year in [place]. She reports that she was getting ready to come back to [place] and actually before she left. She has made her followup appointments with Dr. Tripathi. However, in the past couple of weeks, she began to feel sick with difficulty with some dysphagia, nausea, and upper abdominal pain. She has appointment set up to see him actually tomorrow. She ran over PPI a few weeks ago. She states she was taking it regularly before that, although last refill was in March 2018. Over the weekend, she became more ill, had the episode of hematemesis, melena, and abdominal pain, came to the emergency room. She has had no further melena or hematemesis since admission. She has been started on Protonix drip. Her hemoglobin has dropped down to about 9 and 10. Her last upper endoscopy was in 12/2015. At that time, she had area of duodenal stenosis with ulcerations and previous Myah fundoplication. Her colonoscopy at that time was normal. She has had previous issues with hiatal hernia and paraesophageal hernia, which ultimately resulted in surgical correction of that in 2014. She has had ulcers in the duodenum dating back to June of 2015. In 12/2015, she had no ulcer. PAST MEDICAL HISTORY: Duodenal ulcers noted above, dysphagia with previous fundoplication for large paraesophageal hernia, reflux better after hernia repair, iron-deficiency anemia in the past, left chronic knee pain, osteoarthritis, constipation. PAST SURGICAL HISTORY: Laparoscopic adhesion of lysis in the past, appendectomy, sigmoidoscopy, colonoscopy, hernia repair, hysterectomy, and inguinal herniorrhaphy. ALLERGIES: PENICILLIN. SOCIAL HISTORY: Occasional alcohol use, some caffeine use. No smoking. No drugs. Lives half the year in [place]. MEDICATIONS: Present medications here, Protonix drip and at home, she is on Depakote, Topamax, ferrous gluconate as well. Other medications here, folic acid, morphine p.r.n., Topamax normal saline. PHYSICAL EXAMINATION: GENERAL: The patient is resting comfortably in bed in preop area. She has no distress. VITAL SIGNS: Pulse is 94, temperature is 98, and blood pressure 120/61. HEENT: Mucous membranes are pink and moist. NECK: Supple. LUNGS: Clear. HEART: Regular rate and rhythm without clicks or murmurs. ABDOMEN: Soft. She has some mild tenderness in lower and upper abdomen. There is no rebound. There is no guarding. EXTREMITIES: No clubbing, cyanosis, or edema. LABORATORY DATA: Hemoccult here from 12/10/2018, is negative. Hemoglobin on 12/29/2017 was 11.3 and on 12/10 was 11.5 on admission. On 03/16 it was 9.4. Platelets 276. INR normal. White count normal. Sodium 138, potassium 5.1, BUN and creatinine of 31 and 0.75. ASSESSMENT: History suggestive of gastrointestinal bleed with hematemesis and melena, although, Hemoccult-negative stools. She has a slight drop in hemoglobin. She is hemodynamically stable. 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 RECOMMENDATIONS: 1. Continue Protonix. 2. EGD today. Job ID: [id number]
--- NOTE | 2018-12-11 19:09 | OP ---
DATE OF PROCEDURE: 12/11/2018 PREPROCEDURE DIAGNOSES: Melena with hematemesis, history of peptic ulcer disease. POSTOPERATIVE DIAGNOSES: 1. White based duodenal ulcer at the apex of the bulb with edema, but no stricture. It is roughly 1 cm in size. No stigmata indicate high risk for rebleeding. 2. Mild gastritis in antrum, biopsied for Helicobacter pylori. 3. Evidence of previous Myah fundoplication. No evidence of slippage. Normal esophagus. ANESTHESIA: TIVA. RECOMMENDATIONS: 1. Continue Protonix IV q.12 after drip is complete. 2. Clear liquids. 3. Serial hemoglobin and hematocrit. 4. We will evaluate for gastrinoma in light of her history of recurrent ulcers. We want to question further also about her use of NSAIDs and compliance with her PPI. She said she has been off 2 weeks, but we will need to clarify if it was maybe longer than that. PROCEDURE IN DETAIL: The patient was informed of the risks, benefits, and possible complications of endoscopy including perforation, reaction for medication, aspiration. Informed consent was obtained. The patient was brought to endoscopy suite, where she was sedated in a gradual fashion. Once she was comfortable, a bite block was placed inside the orifice. The endoscope was advanced through the esophagus at the GE junction with slight resistance to passage of the scope and slight tortuosity of the distal esophagus. There was on retroflexed views, evidence of Myah fundoplication. There was no evidence of slipped hernia repair or paraesophageal hernia. Four view showed no blood in the stomach and very mild gastritis in the antrum without any overt erosions or bleeding. There was no evidence of gastric varices or proximal gastric ulcers. The duodenal bulb appeared normal, but there was an ooze of blood noted at the apex of the bulb. There was a white based ulcer about 1 cm in size, somewhat deep with no stigmata indicate high risk of bleeding, but likely the source of bleeding. There were no visible vessels or clot noted to pass the scope beyond this easily into the second and third portions of the duodenum showed no other lesions or ulcers. The scope was then pulled it back to evaluate the ulcer more closely. No other lesions were seen. No bleeding sites were seen. No stigmata indicate high risk for bleeding were seen, and therefore the scope was then removed. After the stomach was surveyed again, the biopsies were taken. The stomach was desufflated. The scope was removed. The patient tolerated the procedure well. There were no complications. Job ID: [id number]
[2018-12-12] MEDS: Morphine 4 MG/ML VIAL SLOW IVP PRN ×2 (05:00→11:05)
[2018-12-12 06:21] LABS: #Lymphocytes 3.1 thou/uL (1.20-3.40); #Monocytes 0.7 thou/uL (0.11-0.59); #Neutrophils 5.4 thou/uL (1.40-6.50); %Basophils 0.5 % (0.0-1.0); %Eosinophils 0.5 % (0.0-10.0); %Lymphocytes 33.3 % (21.0-51.0); %Monocytes 7.8 % (0.0-10.0); Hemoglobin 7.4 g/dL (12.0-16.0); Mean Corpuscular HGB CONC 32.6 g/dL (32.0-36.0); Mean Corpuscular Hemoglobin 33.7 pg (27.0-31.0); Mean Platelet Volume 8.5 fL (7.4-10.4); Platelet Count 225 thou/uL (130-400); RBC Distribution Width 17.1 % (11.5-14.5); Red Blood Cell (RBC) Count 2.19 mill/uL (4.20-5.40); White Blood Cell (WBC) Count 9.4 thou/uL (4.8-10.8)
[2018-12-12] MEDS: Folic Acid 1 MG TAB PO SCH (08:24)
[2018-12-12] MEDS: Pantoprazole 80 MG, Admixture Fee 1 EACH in Sodium Chloride 0.9% 100 ML IVPB SCH (08:27)
[2018-12-12] MEDS: Sodium Chloride 0.9% 1,000 ML IV SCH (09:20)
--- NOTE | 2018-12-12 11:23 | PQF ---
FANSEBASTIAN AURELIO HENSLEY [id number] CLINICAL DOCUMENTATION IMPROVEMENT CLARIFICATION FORM: ICD-10 Updated PLEASE DO AN ADDENDUM TO THE PROGRESS NOTE WITH ANY DOCUMENTATION UPDATES OR ADDITIONS AND CARRY THROUGH TO DC SUMMARY. THANK YOU. DATE: 12/12/2018 ,12/13 ATTN: Tang DRAKE Please exercise your independent, professional judgment in responding to the clarification form. Clinical indicators are provided on the bottom of this form for your review. Please check appropriate box(s): [ x ] Anemia: [ ] Aplastic [ ] Nutritional [ ] Drug induced (specify) __ BLOOD LOSS [ ] Anemia due to Neoplasm: [ ] Primary [ ] Secondary [ ] Other diagnosis [ ] Unable to determine In addition, please specify: Present on Admission (POA): [ x ] Yes [ ] No [ ] Unable to determine For continuity of documentation, please document condition throughout progress notes and discharge summary. Thank You. CLINICAL INDICATORS - SIGNS / SYMPTOMS / LABS 12/10 ED: PT REPORTS INTERMITTENT LOOSE DARK STOOLS AND BRIGHT RED VOMITING FOR THE PAST COUPLE OF WEEKS ARRIVAL TO ED : HYPOTENSIVE (SYSTOLIC IN THE 70S) , P 111 ED PHYSICIAN DIAGNOSIS: UPPER GI BLEED TRANSFUSION OF 1U RBC IN ED HBG 12/10 10.0 10.8 12/11 9.8 9.4 12/12 7.4 RISK: TACHYCARDIA UPPER GI BLEED EGD 12/11 TREATMENTS: SERIAL LABS TRANSFUSION OF RBC ON ADMISSION TO ED FOLIC ACID PO (STARTED 12/12) THANK YOU! TATUM (This form is maintained as a part of the permanent medical record) 2014 [employer]. All Rights Reserved [email or web address] [phone] MTDD
[2018-12-12] MEDS: HYDROcodone/Acetaminophen 5/325 mg Tablet PO PRN ×2 (14:41→20:03)
--- NOTE | 2018-12-12 18:19 | PDOC.PN ---
- Subjective Encounter Start Date: 12/12/18 Encounter Start Time: 10:00 Subjective: pt up in bed complains of pain to her abd area - Objective Resuscitation Status - Order Detail: 12/10/18 14:43 Resuscitation Status Routine Resuscitation Status: FULL: Full Resuscitation Vital Signs & Weight: Vital Signs (12 hours) Temp Pulse Resp BP BP Pulse Ox 12/12/18 16:42 98.2 F 99 16 120/60 97 12/12/18 11:13 98.0 F 93 18 122/56 L 99 12/12/18 08:22 97.9 F 101 H 18 103/58 L 95 Weight Weight 187 lb I&O: 12/11/18 12/12/18 12/13/18 06:59 06:59 06:59 Intake Total 401 983.9 Output Total 600 1200 Balance -199 -216.1 Result Diagrams: 12/12/18 06:08 12/11/18 05:22 Phys Exam - Physical Examination Neck: no nodes, no JVD, supple, full ROM Respiratory: no wheezing, no rales, no rhonchi, wheezing present, clear to auscultation bilateral Cardiovascular: RRR, no significant murmur, no rub, gallop, irregular Gastrointestinal: soft, positive bowel sounds epigastric pain Musculoskeletal: no edema, pulses present, edema present Dx/Plan (1) Melena Code(s): K92.1 - MELENA Status: Acute (2) Anxiety and depression Code(s): F41.9 - ANXIETY DISORDER, UNSPECIFIED; F32.9 - MAJOR DEPRESSIVE DISORDER, SINGLE EPISODE, UNSPECIFIED Status: Chronic (3) Obesity (BMI 30.0-34.9) Code(s): E66.9 - OBESITY, UNSPECIFIED Status: Chronic (4) Hiatal hernia Code(s): K44.9 - DIAPHRAGMATIC HERNIA WITHOUT OBSTRUCTION OR GANGRENE Status: Chronic (5) Bipolar 1 disorder Code(s): F31.9 - BIPOLAR DISORDER, UNSPECIFIED Status: Acute - Plan will check hh in am, pt is a hard stick however given her low hh will need -: iv. protonix switched to po. pt tolerating full liquid diet * . Review of Systems - Review of Systems Respiratory: negative: Cough, Dry, Shortness of Breath, Hemoptysis, SOB with Excertion, Pleuritic Pain, Sputum, Wheezing Cardiovascular: negative: chest pain, palpitations, orthopnea, paroxysmal nocturnal dyspnea, edema, light headedness, other Gastrointestinal: Abdominal Pain Genitourinary: negative: Dysuria, Frequency, Incontinence, Hematuria, Retention , Other - Medications/Allergies Allergies/Adverse Reactions: Allergies Allergy/AdvReac Type Severity Reaction Status Date / Time Penicillins Allergy Verified 12/11/18 00:50 Hibiclens Allergy Uncoded 12/11/18 00:50 Medications: Current Medications Hydrocodone Bitart/Acetaminophen ([place] 5/325) 1 tab PO Q6H PRN PRN Reason: Pain Last Admin: 12/12/18 14:41 Dose: 1 tab Divalproex Sodium (Depakote Er) 500 mg PO HS [facility] Folic Acid (Folvite) 1 mg PO DAILY [facility] Last Admin: 12/12/18 08:24 Dose: 1 mg Sodium Chloride (Normal Saline 0.9%) 1,000 mls @ 50 mls/hr IV .Q20H [facility] Last Admin: 12/11/18 20:56 Dose: Not Given Morphine Sulfate (Morphine) 2 mg SLOW IVP Q4H PRN PRN Reason: Pain Last Admin: 12/12/18 05:00 Dose: 2 mg Pantoprazole Sodium (Protonix) 40 mg PO Q12HR [facility] Pantoprazole Sodium (Protonix) 40 mg PO NOW [facility] Stop: 12/12/18 19:30 Last Admin: 12/12/18 18:22 Dose: 40 mg Quetiapine Fumarate (Seroquel) 100 mg PO HS [facility] Last Admin: 12/11/18 21:52 Dose: 100 mg Sodium Chloride (Flush - Normal Saline) 10 ml IVF PRN PRN PRN Reason: Saline Flush Last Admin: 12/12/18 11:01 Dose: 10 ml Topiramate (Topamax) 50 mg PO HS [facility] Last Admin: 12/11/18 21:52 Dose: 50 mg
--- NOTE | 2018-12-12 19:09 | PRG ---
DATE OF SERVICE: 12/12/2018 SUBJECTIVE: Ms. Carter is tolerating some liquids. She has had no bleeding. She lost IV access. She is on Protonix until earlier this afternoon, IV. She has gotten the p.o. dose today. PHYSICAL EXAMINATION: VITAL SIGNS: Temperature 98, pulse 99, and blood pressure 120/60. GENERAL: She is resting comfortably. She is a little bit pale. HEENT: Oropharynx, no lesions. ABDOMEN: Soft and nontender. LABORATORY DATA: At 6:00 this morning, her white count was 9.4, hemoglobin was 7.4, MCV was 103, platelet count was 225. Her BUN is 31. Electrolytes were not rechecked today. ASSESSMENT: Gastrointestinal bleed, large duodenal ulcer, not actively bleeding at the time, but definitely she bled recently based on her labs and dropped hemoglobin. RECOMMENDATIONS: 1. I would re-obtain IV access since she may ultimately need transfusion. 2. If that is obtained, we will go ahead and restart IV Protonix q.12, 40 mg; if it is not, I would continue 40 mg p.o. b.i.d. until it is obtained. 3. Continue serial hemoglobin and hematocrits. We discussed with nurses and discussed with primary physician also that we are going to try to obtain a PICC line or central line. Job ID: [id number]
[2018-12-12] MEDS ORDERED: Lidocaine 1% (PF) 30 ML VIAL ONE (21:25)
[2018-12-12] MEDS ORDERED: Ondansetron ODT 8 MG TAB SL PRN (21:46)
--- NOTE | 2018-12-12 21:54 | PDOC.EVN ---
Event Note - Event Note Event Note: Femoral Central Line Procedure Note INDICATION:Line access PROCEDURE ACCELERATOR OPERATOR: Anaid Wesley MD; Zachary Presley MD ATTENDING PHYSICIAN: Zion Aguilera MD direct supervision and assistance with procedure Ultrasound Used: Y CONSENT: Consent was obtained from patient prior to the procedure. Indications, risks, and benefits were explained at length. PROCEDURE SUMMARY: [facility][NOTE 3] Central Line Insertion Practices form was completed by an independent observer starting with the first handwash prior to starting sterile technique. A time out was performed. Hands were washed immediately prior to the procedure. Wore a surgical cap, mask with protective eyewear, sterile gown and sterile gloves throughout the procedure. Initially the Right IJ was identified via ultrasound and CVC placement attempted. The patient was placed in slight Trendelenberg position. The Right IJ region was prepped using chlorhexidine scrub and draped in sterile fashion using a full drape and sterile probe cover employed. Anesthesia was achieved using 1% lidocaine. Dr Wesley, Dr Presley and Dr Aguilera each attempted to cannulate the Right IJ with ultrasound guidance but were unsuccessful. We then started over the process over for placement of a right femoral CVC. Shelly tolerated well. The right inguinal region was prepped using chlorhexidine scrub and draped in sterile fashion using a full drape and sterile probe cover employed. The femoral pulse was identified. Anesthesia was achieved using 1% lidocaine. Using ultrasound throughout the procedure, the introducer needle was inserted medial to the femoral artery, inferior to the inguinal crease and into the femoral vein. Venous blood was withdrawn. The syringe was removed and a guidewire was advanced into the introducer needle. A small incision was made at the skin surface with a scalpel and the introducer needle was exchanged for a dilator over the guidewire. After appropriate dilation was obtained, the dilator was exchanged over the wire for a central venous catheter. The wire was removed and the catheter was sutured in place. A sterile sorbaview shield was placed over the catheter at the insertion site. The patient tolerated the procedure without any hemodynamic compromise. At time of procedure completion, all ports aspirated and flushed properly. Estimated blood loss is 20cc. Shelly tolerated well. Since an IJ attempt was made, portable CXR was ordered.
--- NOTE | 2018-12-12 22:21 | RAD ---
PORTABLE CHEST ONE VIEW: 12/12/18 at 9:50 p.m. HISTORY: Attempted right internal jugular central venous catheter. Concern for pneumothorax. FINDINGS: The heart size is normal. The aorta is tortuous. The lungs are well expanded without focal areas of c onsolidation, pneumothoraces, or pleural effusions. IMPRESSION: No acute process. POS: CASI
[2018-12-12] MEDS: Ondansetron PF 4 MG/2 ML Vial IVP PRN (22:49)
[2018-12-12] MEDS: Topiramate 25 MG TAB PO SCH (22:50)
[2018-12-12] MEDS: Pantoprazole 40 MG VIAL IVP SCH (22:51)
[2018-12-13] MEDS: HYDROcodone/Acetaminophen 5/325 mg Tablet PO PRN ×4 (02:21→20:44)
[2018-12-13] MEDS: Sodium Chloride 0.9% 1,000 ML IV SCH (02:22)
[2018-12-13 06:15] LABS: Anion Gap 7 mmol/L (10-20); BUN (Urea Nitrogen) 17 mg/dL (9.8-20.1); Calc. Creatinine Clearance 96 mL/min (70-130); Calcium 8.4 mg/dL (7.8-10.44); Carbon Dioxide 22 mmol/L (23-31); Chloride 113 mmol/L (98-107); Estimated GFR-MDRD 81; Glucose 103 mg/dL (83-110); Potassium 3.3 mmol/L (3.5-5.1); Sodium 139 mmol/L (136-145)
[2018-12-13 06:26] LABS: MDiff Complete? YES; Mean Corpuscular HGB CONC 33.9 g/dL (32.0-36.0); Mean Corpuscular Hemoglobin 34.1 pg (27.0-31.0); Mean Platelet Volume 8.3 fL (7.4-10.4); Platelet Count 200 thou/uL (130-400); RBC Distribution Width 17.5 % (11.5-14.5); Red Blood Cell (RBC) Count 1.75 mill/uL (4.20-5.40)
[2018-12-13 06:27] LABS: Hypochromia SLIGHT = 6-15 cells (100X) (0-5/hpf); Lymphocytes 48 % (21-51); Macrocytosis SLIGHT = 6-15 cells (100X) (0-5/hpf); Metamyelocyte 2 % (0-0); Monocytes 2 % (0-10); Neutrophil 48 % (42-75); Nucleated RBC 2 % (0); Platelet Morphology Comment Appears Adequate; Polychromasia SLIGHT = 2-3 cells (100X) (0-2/hpf)
[2018-12-13] MEDS: Pantoprazole 40 MG VIAL IVP SCH ×2 (08:14→20:43)
[2018-12-13] MEDS: Folic Acid 1 MG TAB PO SCH (08:14)
[2018-12-13] MEDS: Nicotine 21 MG PATCH TD SCH (08:15)
[2018-12-13] MEDS ORDERED: diphenhydrAMINE 50 MG/ML VIAL IVP SCH (10:00)
--- NOTE | 2018-12-13 16:13 | PRG ---
DATE OF SERVICE: 12/13/2018 SUBJECTIVE: Ms. Carter has had no vomiting. No melena. She does still have some pain when she eats. She had a central line placed yesterday. OBJECTIVE: VITAL SIGNS: Temperature is 98.6, blood pressure 122/58, respirations 18, and pulse 89. ABDOMEN: Soft and nontender. LABORATORY DATA: Hemoglobin dropped to 6 today, white count 6, and platelet count 200. BUN is down from 31 to 17 from the 8th till today. Creatinine is 0.7. ASSESSMENT AND PLAN: Upper gastrointestinal bleed from duodenal ulcer. I do not think she is actively bleeding now. I think this is equilibration now that she has been resuscitated with IV fluids. I agree with the plan for transfusion. We would keep her on IV PPI. If there are signs of acute bleeding, we can consider repeat endoscopy, but she has had no vomiting or passing of blood and her BUN continues to drop, which I think if she is still having bleeding, it would rise from blood absorption in the small bowel. We will await gastrin levels and continue to follow along with the you. Job ID: [id number]
--- NOTE | 2018-12-13 19:20 | PDOC.PN ---
- Subjective Encounter Start Date: 12/13/18 Encounter Start Time: 10:00 Subjective: pt up in bed no complains, hh low will transfuse - Objective Resuscitation Status - Order Detail: 12/10/18 14:43 Resuscitation Status Routine Resuscitation Status: FULL: Full Resuscitation Vital Signs & Weight: Vital Signs (12 hours) Temp Pulse Pulse Resp BP BP Pulse Ox 12/13/18 16:40 98.5 F 85 18 103/58 L 98 12/13/18 14:00 98.6 F 89 18 122/58 L 12/13/18 13:30 98.4 F 92 18 118/60 12/13/18 12:00 97.9 F 90 17 120/62 99 12/13/18 07:42 98.2 F 97 18 104/53 L 100 Weight Weight 187 lb I&O: 12/12/18 12/13/18 12/14/18 06:59 06:59 06:59 Intake Total 983.9 1779 880 Output Total 1200 1070 600 Balance -216.1 709 280 Result Diagrams: 12/13/18 05:45 12/13/18 05:45 Phys Exam - Physical Examination Neck: no nodes, no JVD, supple, full ROM Respiratory: no wheezing, no rales, no rhonchi, wheezing present, clear to auscultation bilateral Cardiovascular: RRR, no significant murmur, no rub, gallop, irregular Gastrointestinal: soft, positive bowel sounds mild pain on palpation Dx/Plan (1) Melena Code(s): K92.1 - MELENA Status: Acute (2) Anxiety and depression Code(s): F41.9 - ANXIETY DISORDER, UNSPECIFIED; F32.9 - MAJOR DEPRESSIVE DISORDER, SINGLE EPISODE, UNSPECIFIED Status: Chronic (3) Obesity (BMI 30.0-34.9) Code(s): E66.9 - OBESITY, UNSPECIFIED Status: Chronic (4) Hiatal hernia Code(s): K44.9 - DIAPHRAGMATIC HERNIA WITHOUT OBSTRUCTION OR GANGRENE Status: Chronic (5) Bipolar 1 disorder Code(s): F31.9 - BIPOLAR DISORDER, UNSPECIFIED Status: Acute - Plan pt's hh low will transfuse one unit -: lab called due to previous reaction, no hemolysis noted per lab -: will continue protonix * . Review of Systems - Review of Systems Respiratory: negative: Cough, Dry, Shortness of Breath, Hemoptysis, SOB with Excertion, Pleuritic Pain, Sputum, Wheezing Cardiovascular: negative: chest pain, palpitations, orthopnea, paroxysmal nocturnal dyspnea, edema, light headedness, other Gastrointestinal: Abdominal Pain - Medications/Allergies Allergies/Adverse Reactions: Allergies Allergy/AdvReac Type Severity Reaction Status Date / Time Penicillins Allergy Verified 12/11/18 00:50 Hibiclens Allergy Uncoded 12/11/18 00:50 Medications: Current Medications Hydrocodone Bitart/Acetaminophen ([place] 5/325) 2 tab PO Q6H PRN PRN Reason: Pain Last Admin: 12/13/18 13:48 Dose: 2 tab Divalproex Sodium (Depakote Er) 500 mg PO [facility] Last Admin: 12/12/18 22:49 Dose: 500 mg Folic Acid (Folvite) 1 mg PO DAILY [facility] Last Admin: 12/13/18 08:14 Dose: 1 mg Sodium Chloride (Normal Saline 0.9%) 1,000 mls @ 50 mls/hr IV .Q20H [facility] Last Admin: 12/13/18 02:22 Dose: 1,000 mls Morphine Sulfate (Morphine) 2 mg SLOW IVP Q4H PRN PRN Reason: Pain Last Admin: 12/12/18 05:00 Dose: 2 mg Nicotine (Nicoderm Patch) 21 mg TD DAILY [facility] Last Admin: 12/13/18 08:15 Dose: Not Given Ondansetron HCl (Zofran Odt) 8 mg SL BID PRN PRN Reason: Nausea/Vomiting Ondansetron HCl (Zofran) 4 mg IVP Q6H PRN PRN Reason: Nausea/Vomiting Last Admin: 12/12/18 22:49 Dose: 4 mg Pantoprazole Sodium (Protonix) 40 mg IVP Q12HR [facility] Last Admin: 12/13/18 08:14 Dose: 40 mg Quetiapine Fumarate (Seroquel) 100 mg PO [facility] Last Admin: 12/12/18 22:50 Dose: 100 mg Sodium Chloride (Flush - Normal Saline) 10 ml IVF PRN PRN PRN Reason: Saline Flush Last Admin: 12/12/18 11:01 Dose: 10 ml Topiramate (Topamax) 50 mg PO [facility] Last Admin: 12/12/18 22:50 Dose: 50 mg
[2018-12-13] MEDS: Topiramate 25 MG TAB PO SCH (20:44)
[2018-12-14] MEDS: Sodium Chloride 0.9% 1,000 ML IV SCH (04:21)
[2018-12-14] MEDS: Nicotine 21 MG PATCH TD SCH (08:37)
[2018-12-14] MEDS: Folic Acid 1 MG TAB PO SCH (08:37)
[2018-12-14] MEDS: HYDROcodone/Acetaminophen 5/325 mg Tablet PO PRN ×3 (08:37→22:01)
[2018-12-14] MEDS: Pantoprazole 40 MG VIAL IVP SCH ×2 (08:37→21:01)
[2018-12-14 09:38] LABS: #Basophils 0.1 thou/uL (0.0-0.2); #Monocytes 0.4 thou/uL (0.11-0.59); #Neutrophils 2.2 thou/uL (1.40-6.50); %Basophils 1.4 % (0.0-1.0); %Lymphocytes 42.6 % (21.0-51.0); %Monocytes 8.6 % (0.0-10.0); %Neutrophils 46.4 % (42.0-75.0); Hemoglobin 7.5 g/dL (12.0-16.0); Mean Corpuscular HGB CONC 33.8 g/dL (32.0-36.0); Mean Corpuscular Hemoglobin 33.3 pg (27.0-31.0); Mean Corpuscular Volume 98.5 fL (78.0-98.0); Mean Platelet Volume 8.4 fL (7.4-10.4); Platelet Count 253 thou/uL (130-400); RBC Distribution Width 16.5 % (11.5-14.5); Red Blood Cell (RBC) Count 2.27 mill/uL (4.20-5.40); White Blood Cell (WBC) Count 4.7 thou/uL (4.8-10.8)
--- NOTE | 2018-12-14 15:32 | PDOC.PN ---
- Subjective Encounter Start Date: 12/14/18 Encounter Start Time: 11:15 Subjective: pt up in bed no complains - Objective Resuscitation Status - Order Detail: 12/10/18 14:43 Resuscitation Status Routine Resuscitation Status: FULL: Full Resuscitation Vital Signs & Weight: Vital Signs (12 hours) Temp Pulse Resp BP BP Pulse Ox 12/14/18 12:00 98.0 F 94 16 113/59 L 97 12/14/18 09:00 100 119/68 12/14/18 07:34 98 12/14/18 07:30 98.1 F 88 17 91/50 L 98 12/14/18 04:00 98.3 F 85 12 97/55 L 97 Weight Weight 188 lb 8 oz I&O: 12/13/18 12/14/18 12/15/18 06:59 06:59 06:59 Intake Total 1779 1710 Output Total 1070 1150 Balance 709 560 Result Diagrams: 12/14/18 09:11 12/13/18 05:45 Phys Exam - Physical Examination Neck: no nodes, no JVD, supple, full ROM Respiratory: no wheezing, no rales, no rhonchi, wheezing present, clear to auscultation bilateral Cardiovascular: RRR, no significant murmur, no rub, gallop, irregular Gastrointestinal: soft, positive bowel sounds Musculoskeletal: no edema, pulses present, edema present Dx/Plan (1) Melena Code(s): K92.1 - MELENA Status: Acute (2) Anxiety and depression Code(s): F41.9 - ANXIETY DISORDER, UNSPECIFIED; F32.9 - MAJOR DEPRESSIVE DISORDER, SINGLE EPISODE, UNSPECIFIED Status: Chronic (3) Obesity (BMI 30.0-34.9) Code(s): E66.9 - OBESITY, UNSPECIFIED Status: Chronic (4) Hiatal hernia Code(s): K44.9 - DIAPHRAGMATIC HERNIA WITHOUT OBSTRUCTION OR GANGRENE Status: Chronic (5) Bipolar 1 disorder Code(s): F31.9 - BIPOLAR DISORDER, UNSPECIFIED Status: Acute - Plan pt's hh low stable, will advance diet to soft -: will continue ppi for now -: if hh stable possible discharge in am * . Review of Systems - Review of Systems Respiratory: negative: Cough, Dry, Shortness of Breath, Hemoptysis, SOB with Excertion, Pleuritic Pain, Sputum, Wheezing Cardiovascular: negative: chest pain, palpitations, orthopnea, paroxysmal nocturnal dyspnea, edema, light headedness, other Gastrointestinal: Abdominal Pain Genitourinary: negative: Dysuria, Frequency, Incontinence, Hematuria, Retention , Other Musculoskeletal: negative: Neck Pain, Shoulder Pain, Arm Pain, Back Pain, Hand Pain, Leg Pain, Foot Pain, Other - Medications/Allergies Allergies/Adverse Reactions: Allergies Allergy/AdvReac Type Severity Reaction Status Date / Time Penicillins Allergy Verified 12/11/18 00:50 Hibiclens Allergy Uncoded 12/11/18 00:50 Medications: Current Medications Hydrocodone Bitart/Acetaminophen ([place] 5/325) 2 tab PO Q6H PRN PRN Reason: Pain Last Admin: 12/14/18 08:37 Dose: 2 tab Divalproex Sodium (Depakote Er) 500 mg PO [facility] Last Admin: 12/13/18 20:45 Dose: 500 mg Folic Acid (Folvite) 1 mg PO DAILY [facility] Last Admin: 12/14/18 08:37 Dose: 1 mg Morphine Sulfate (Morphine) 2 mg SLOW IVP Q4H PRN PRN Reason: Pain Last Admin: 12/12/18 05:00 Dose: 2 mg Nicotine (Nicoderm Patch) 21 mg TD DAILY [facility] Last Admin: 12/14/18 08:37 Dose: Not Given Ondansetron HCl (Zofran Odt) 8 mg SL BID PRN PRN Reason: Nausea/Vomiting Ondansetron HCl (Zofran) 4 mg IVP Q6H PRN PRN Reason: Nausea/Vomiting Last Admin: 12/12/18 22:49 Dose: 4 mg Pantoprazole Sodium (Protonix) 40 mg IVP Q12HR [facility] Last Admin: 12/14/18 08:37 Dose: 40 mg Potassium Chloride (Klor-Con 10) 20 meq PO [facility] Quetiapine Fumarate (Seroquel) 100 mg PO [facility] Last Admin: 12/13/18 20:44 Dose: 100 mg Sodium Chloride (Flush - Normal Saline) 10 ml IVF PRN PRN PRN Reason: Saline Flush Last Admin: 12/12/18 11:01 Dose: 10 ml Topiramate (Topamax) 50 mg PO [facility] Last Admin: 12/13/18 20:44 Dose: 50 mg
--- NOTE | 2018-12-14 18:46 | PRG ---
DATE OF SERVICE: 12/14/2018 SUBJECTIVE: Ms. Carter has had no further bleeding. She is feeling a little bit better, but does get some epigastric pain when she eats. MEDICATIONS: 1. Depakote. 2. Folvite. 3. [place]. 4. Morphine. 5. Nicoderm patch. 6. Zofran. 7. Protonix 40 IV q.12. 8. Potassium. 9. Seroquel. PHYSICAL EXAMINATION: VITAL SIGNS: Temperature is 98, pulse 80, blood pressure 132/59 and 93/61. ABDOMEN: Soft. There is no rebound. There is no guarding. LABORATORY DATA: Hemoglobin 7.5 today, it was 6 yesterday. BUN and creatinine are 17 and 0.7, down from 31 and 0.75. Gastrin was elevated at equivocal level at 653. 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 Previous biopsies negative for Helicobacter pylori. Previous biopsies negative for malignancy. gastrin is mildly elevated in equivocal range. This could be from PPIs alone. It maybe reasonable at some time in the future to consider further evaluation for possible gastrinoma. For now, we will continue to treat with IV b.i.d. PPI and advance her diet. If she does well and does not have any bleeding, we can change to p.o. tomorrow. If her hemoglobin drops below 7, I will give her another unit of blood. If she has any signs of overt bleeding, we can consider repeat endoscopy. Job ID: [id number]
[2018-12-14] MEDS: Topiramate 25 MG TAB PO SCH (22:01)
[2018-12-15] MEDS: Pantoprazole 40 MG VIAL IVP SCH ×2 (09:21→21:49)
[2018-12-15] MEDS: Potassium Chloride 10 MEQ TAB PO SCH (09:21)
[2018-12-15] MEDS: HYDROcodone/Acetaminophen 5/325 mg Tablet PO PRN ×3 (09:22→21:48)
[2018-12-15] MEDS: Folic Acid 1 MG TAB PO SCH (09:22)
[2018-12-15] MEDS: Nicotine 21 MG PATCH TD SCH (09:23)
[2018-12-15 13:36] LABS: Hemoglobin 7.7 g/dL (12.0-16.0)
--- NOTE | 2018-12-15 13:39 | PDOC.PN ---
- Subjective Encounter Start Date: 12/15/18 Encounter Start Time: 09:00 Subjective: pt complains of pain when she eats - Objective Resuscitation Status - Order Detail: 12/10/18 14:43 Resuscitation Status Routine Resuscitation Status: FULL: Full Resuscitation Vital Signs & Weight: Vital Signs (12 hours) Temp Pulse Resp BP BP Pulse Ox 12/15/18 07:30 98 12/15/18 07:28 96.6 F L 86 18 104/50 L 98 12/15/18 03:34 98.7 F 88 16 93/55 L 95 Weight Weight 189 lb 4.8 oz I&O: 12/14/18 12/15/18 12/16/18 06:59 06:59 06:59 Intake Total 1710 1000 Output Total 1150 950 Balance 560 50 Result Diagrams: 12/15/18 13:30 12/13/18 05:45 Phys Exam - Physical Examination Respiratory: no wheezing, no rales, no rhonchi, wheezing present, clear to auscultation bilateral Cardiovascular: RRR, no significant murmur, no rub, gallop, irregular Gastrointestinal: soft, positive bowel sounds mild abd tenderness Musculoskeletal: no edema, pulses present, edema present Neurological: non-focal, normal sensation, moves all 4 limbs Dx/Plan (1) [place] Code(s): K92.1 - MELENA Status: Acute (2) Anxiety and depression Code(s): F41.9 - ANXIETY DISORDER, UNSPECIFIED; F32.9 - MAJOR DEPRESSIVE DISORDER, SINGLE EPISODE, UNSPECIFIED Status: Chronic (3) Obesity (BMI 30.0-34.9) Code(s): E66.9 - OBESITY, UNSPECIFIED Status: Chronic (4) Hiatal hernia Code(s): K44.9 - DIAPHRAGMATIC HERNIA WITHOUT OBSTRUCTION OR GANGRENE Status: Chronic (5) Bipolar 1 disorder Code(s): F31.9 - BIPOLAR DISORDER, UNSPECIFIED Status: Acute - Plan pt's hh stable, s/p one unit of blood transfusion. -: will conitnue protonix. she still has pain when she eats. -: ? home in am if ok with gi * . Review of Systems - Review of Systems Respiratory: negative: Cough, Dry, Shortness of Breath, Hemoptysis, SOB with Excertion, Pleuritic Pain, Sputum, Wheezing Cardiovascular: negative: chest pain, palpitations, orthopnea, paroxysmal nocturnal dyspnea, edema, light headedness, other Gastrointestinal: Abdominal Pain Genitourinary: negative: Dysuria, Frequency, Incontinence, Hematuria, Retention , Other - Medications/Allergies Allergies/Adverse Reactions: Allergies Allergy/AdvReac Type Severity Reaction Status Date / Time Penicillins Allergy Verified 12/11/18 00:50 Hibiclens Allergy Uncoded 12/11/18 00:50 Medications: Current Medications Hydrocodone Bitart/Acetaminophen ([place] 5/325) 2 tab PO Q6H PRN PRN Reason: Pain Last Admin: 12/15/18 09:22 Dose: 2 tab Divalproex Sodium (Depakote Er) 500 mg PO [facility] Last Admin: 12/14/18 21:00 Dose: 500 mg Folic Acid (Folvite) 1 mg PO DAILY [facility] Last Admin: 12/15/18 09:22 Dose: 1 mg Morphine Sulfate (Morphine) 2 mg SLOW IVP Q4H PRN PRN Reason: Pain Last Admin: 12/12/18 05:00 Dose: 2 mg Nicotine (Nicoderm Patch) 21 mg TD DAILY [facility] Last Admin: 12/15/18 09:23 Dose: Not Given Ondansetron HCl (Zofran Odt) 8 mg SL BID PRN PRN Reason: Nausea/Vomiting Ondansetron HCl (Zofran) 4 mg IVP Q6H PRN PRN Reason: Nausea/Vomiting Last Admin: 12/12/18 22:49 Dose: 4 mg Pantoprazole Sodium (Protonix) 40 mg IVP Q12HR [facility] Last Admin: 12/15/18 09:21 Dose: 40 mg Potassium Chloride (Klor-Con 10) 20 meq PO QAM-[facility] Last Admin: 12/15/18 09:21 Dose: 20 meq Quetiapine Fumarate (Seroquel) 100 mg PO [facility] Last Admin: 12/14/18 21:00 Dose: 100 mg Sodium Chloride (Flush - Normal Saline) 10 ml IVF PRN PRN PRN Reason: Saline Flush Last Admin: 12/14/18 21:01 Dose: 10 ml Topiramate (Topamax) 50 mg PO [facility] Last Admin: 12/14/18 22:01 Dose: 50 mg
[2018-12-15 13:56] LABS: Anion Gap 8 mmol/L (10-20); BUN (Urea Nitrogen) 6 mg/dL (9.8-20.1); Calc. Creatinine Clearance 101 mL/min (70-130); Calcium 8.5 mg/dL (7.8-10.44); Carbon Dioxide 25 mmol/L (23-31); Chloride 109 mmol/L (98-107); Estimated GFR-MDRD 85; Glucose 133 mg/dL (83-110); Potassium 3.5 mmol/L (3.5-5.1); Sodium 138 mmol/L (136-145)
--- NOTE | 2018-12-15 15:04 | PRG ---
DATE OF SERVICE: 12/15/2018 SUBJECTIVE: Ms. Carter is still having epigastric pain and cramping when she eats. It is also in the lower chest. She wonders if she can get back on her MiraLAX. She has had no bleeding. OBJECTIVE: VITAL SIGNS: Temperature 98.6, pulse 86, blood pressure 104/50. ABDOMEN: Soft, nontender. There is no rebound. There is no guarding. EXTREMITIES: No clubbing, cyanosis, or edema. LABORATORY STUDIES: Hemoglobin 7.5 yesterday, 7.7 today. ASSESSMENT: 1. Gastrointestinal bleed from duodenal ulcer, stable, hemoglobin 7.7. 2. Epigastric pain, possibly related to the patient's slight stricturing in that area. She still has epigastric pain when she eats. RECOMMENDATIONS: We will add Bentyl to meals. We will place her on her MiraLAX. We will go ahead and get right upper quadrant ultrasound to make sure we are not missing any other processes. Job ID: [id number]
[2018-12-15] MEDS: Dicyclomine 10 MG CAP PO SCH ×2 (17:31→21:47)
[2018-12-15] MEDS: Topiramate 25 MG TAB PO SCH (21:49)
[2018-12-16 07:32] LABS: #Eosinphils 0.2 thou/uL (0.0-0.7); #Lymphocytes 2.5 thou/uL (1.20-3.40); #Monocytes 0.7 thou/uL (0.11-0.59); #Neutrophils 4.3 thou/uL (1.40-6.50); %Basophils 0.2 % (0.0-1.0); %Eosinophils 2.6 % (0.0-10.0); %Lymphocytes 32.1 % (21.0-51.0); %Neutrophils 56.1 % (42.0-75.0); Hemoglobin 7.7 g/dL (12.0-16.0); Mean Corpuscular HGB CONC 33.5 g/dL (32.0-36.0); Mean Corpuscular Hemoglobin 33.4 pg (27.0-31.0); Mean Corpuscular Volume 99.8 fL (78.0-98.0); Mean Platelet Volume 8.1 fL (7.4-10.4); Platelet Count 340 thou/uL (130-400); RBC Distribution Width 17.8 % (11.5-14.5); Red Blood Cell (RBC) Count 2.32 mill/uL (4.20-5.40); White Blood Cell (WBC) Count 7.7 thou/uL (4.8-10.8)
[2018-12-16] MEDS: Dicyclomine 10 MG CAP PO SCH ×4 (08:18→21:47)
[2018-12-16] MEDS: Potassium Chloride 10 MEQ TAB PO SCH (08:19)
[2018-12-16] MEDS: Folic Acid 1 MG TAB PO SCH (08:19)
[2018-12-16] MEDS: HYDROcodone/Acetaminophen 5/325 mg Tablet PO PRN ×3 (08:19→21:47)
[2018-12-16] MEDS: Pantoprazole 40 MG VIAL IVP SCH ×2 (08:20→21:47)
[2018-12-16] MEDS: Polyethylene Glycol 3350 17 GM Packet PO PRN (08:20)
[2018-12-16] MEDS: Ondansetron PF 4 MG/2 ML Vial IVP PRN (08:20)
[2018-12-16] MEDS: Nicotine 21 MG PATCH TD SCH (08:20)
--- NOTE | 2018-12-16 08:50 | ULT ---
RIGHT UPPER QUADRANT ULTRASOUND: Date: 12/16/18 INDICATION: Epigastric abdominal pain. COMPARISON: Prior exam dated 01/11/[address] abdomen/pelvis dated 12/10/18. FINDINGS: No focal hepatic lesion is evident. Portions of the right hepatic lobe not well seen due to overlying bowel gas. Gallbladder within normal limits. No sonographic Baker's sign reported. Common bile duct measured 4.5 mm. Right kidney measured 10.1 x 4.3 x 4.7 cm. No focal renal lesion or hydronephrosis evident. Pancreas obscured by overlying bowel gas. IMPRESSION: No acute sonographic abnormality within the right upper quadrant. POS: BH
[2018-12-16 10:57] LABS: Anion Gap 10 mmol/L (10-20); BUN (Urea Nitrogen) 7 mg/dL (9.8-20.1); Calc. Creatinine Clearance 102 mL/min (70-130); Calcium 8.7 mg/dL (7.8-10.44); Carbon Dioxide 23 mmol/L (23-31); Chloride 110 mmol/L (98-107); Estimated GFR-MDRD 87; Glucose 103 mg/dL (83-110); Potassium 3.6 mmol/L (3.5-5.1); Sodium 139 mmol/L (136-145)
--- NOTE | 2018-12-16 13:27 | PDOC.PN ---
- Subjective Encounter Start Date: 12/16/18 Encounter Start Time: 10:30 Subjective: pt up in bed still complains of pain when she eats - Objective Resuscitation Status - Order Detail: 12/10/18 14:43 Resuscitation Status Routine Resuscitation Status: FULL: Full Resuscitation Vital Signs & Weight: Vital Signs (12 hours) Temp Pulse Resp BP BP Pulse Ox 12/16/18 12:22 97.2 F L 92 18 104/58 L 99 12/16/18 08:00 98.3 F 88 16 101/55 L 99 12/16/18 04:00 98.6 F 88 18 104/56 L 97 Weight Weight 187 lb I&O: 12/15/18 12/16/18 12/17/18 06:59 06:59 06:59 Intake Total 1000 960 Output Total 950 1000 Balance 50 -40 Result Diagrams: 12/16/18 05:00 12/16/18 10:30 Phys Exam - Physical Examination Neck: no nodes, no JVD, supple, full ROM Respiratory: no wheezing, no rales, no rhonchi, wheezing present, clear to auscultation bilateral Cardiovascular: RRR, no significant murmur, no rub, gallop, irregular Gastrointestinal: soft, positive bowel sounds abd pain Musculoskeletal: no edema, pulses present, edema present Dx/Plan (1) [place] Code(s): K92.1 - MELENA Status: Acute (2) Anxiety and depression Code(s): F41.9 - ANXIETY DISORDER, UNSPECIFIED; F32.9 - MAJOR DEPRESSIVE DISORDER, SINGLE EPISODE, UNSPECIFIED Status: Chronic (3) Obesity (BMI 30.0-34.9) Code(s): E66.9 - OBESITY, UNSPECIFIED Status: Chronic (4) Hiatal hernia Code(s): K44.9 - DIAPHRAGMATIC HERNIA WITHOUT OBSTRUCTION OR GANGRENE Status: Chronic (5) Bipolar 1 disorder Code(s): F31.9 - BIPOLAR DISORDER, UNSPECIFIED Status: Acute - Plan pt on protonix for now -: abd ultrasound no acute changes -: pt states that her abd pain improves with narcotics -: hh stable, will await gi recommendation * . Review of Systems - Review of Systems Respiratory: negative: Cough, Dry, Shortness of Breath, Hemoptysis, SOB with Excertion, Pleuritic Pain, Sputum, Wheezing Cardiovascular: negative: chest pain, palpitations, orthopnea, paroxysmal nocturnal dyspnea, edema, light headedness, other Gastrointestinal: Abdominal Pain Genitourinary: negative: Dysuria, Frequency, Incontinence, Hematuria, Retention , Other Musculoskeletal: negative: Neck Pain, Shoulder Pain, Arm Pain, Back Pain, Hand Pain, Leg Pain, Foot Pain, Other - Medications/Allergies Allergies/Adverse Reactions: Allergies Allergy/AdvReac Type Severity Reaction Status Date / Time Penicillins Allergy Verified 12/11/18 00:50 Hibiclens Allergy Uncoded 12/11/18 00:50 Medications: Current Medications Hydrocodone Bitart/Acetaminophen ([place] 5/325) 2 tab PO Q6H PRN PRN Reason: Pain Last Admin: 12/16/18 08:19 Dose: 2 tab Dicyclomine HCl (Bentyl) 10 mg PO [facility] Last Admin: 12/16/18 12:18 Dose: 10 mg Divalproex Sodium (Depakote Er) 500 mg PO [facility] Last Admin: 12/15/18 21:47 Dose: 500 mg Folic Acid (Folvite) 1 mg PO DAILY [facility] Last Admin: 12/16/18 08:19 Dose: 1 mg Morphine Sulfate (Morphine) 2 mg SLOW IVP Q4H PRN PRN Reason: Pain Last Admin: 12/12/18 05:00 Dose: 2 mg Nicotine (Nicoderm Patch) 21 mg TD DAILY [facility] Last Admin: 12/16/18 08:20 Dose: Not Given Ondansetron HCl (Zofran Odt) 8 mg SL BID PRN PRN Reason: Nausea/Vomiting Ondansetron HCl (Zofran) 4 mg IVP Q6H PRN PRN Reason: Nausea/Vomiting Last Admin: 12/16/18 08:20 Dose: 4 mg Pantoprazole Sodium (Protonix) 40 mg IVP Q12HR [facility] Last Admin: 12/16/18 08:20 Dose: 40 mg Polyethylene Glycol (Miralax) 17 gm PO DAILYPRN PRN PRN Reason: Constipation Last Admin: 12/16/18 08:20 Dose: 17 gm Potassium Chloride (Klor-Con 10) 20 meq PO QAM-[facility] Last Admin: 12/16/18 08:19 Dose: 20 meq Quetiapine Fumarate (Seroquel) 100 mg PO [facility] Last Admin: 12/15/18 21:47 Dose: 100 mg Sodium Chloride (Flush - Normal Saline) 10 ml IVF PRN PRN PRN Reason: Saline Flush Last Admin: 12/14/18 21:01 Dose: 10 ml Topiramate (Topamax) 50 mg PO HS [facility] Last Admin: 12/15/18 21:49 Dose: 50 mg
--- NOTE | 2018-12-16 16:57 | PRG ---
DATE OF SERVICE: 12/16/2018 SUBJECTIVE: Ms. Carter states that she is feeling a little bit better with her stomach, but still she is taking [place] for pain after she eats. She remains on dicyclomine, Depakote, folic acid, hydrocodone, morphine, nicotine patch, Zofran, Protonix, took some MiraLAX today. She has had no vomiting or bleeding. OBJECTIVE: VITAL SIGNS: Blood pressure is 104/58, temperature is 97.2, pulse is 92, and respirations 18. ABDOMEN: Soft and nontender. There is no rebound or guarding. Ultrasound of the gallbladder was normal today. LABORATORY DATA: White count 7.7, hemoglobin 7.7, and platelet count 340. Basic metabolic is normal. Ultrasound of right upper quadrant normal. ASSESSMENT: 1. Peptic ulcer disease. It is unclear if this is nonsteroidal anti-inflammatory drug related or possibly related to hypersecretion. 2. The patient reports history of abnormal liver function test at outside facility. This was noted on 12/10/2018, was not present in the past, this apparently was in [place] and that may have represented an episode of shock liver. RECOMMENDATIONS: 1. If ongoing pain, get a CAT scan of her abdomen. 2. Repeat liver function tests. 3. Check lipase. 4. Continue ulcer treatment. Job ID: [id number]
[2018-12-16] MEDS: Topiramate 25 MG TAB PO SCH (21:46)
[2018-12-17] MEDS: Morphine 4 MG/ML VIAL SLOW IVP PRN (07:57)
[2018-12-17] MEDS: Ondansetron PF 4 MG/2 ML Vial IVP PRN (08:00)
[2018-12-17] MEDS: Dicyclomine 10 MG CAP PO SCH ×3 (08:03→18:19)
--- NOTE | 2018-12-17 10:04 | CT ---
EXAM: CT abdomen and pelvis with IV contrast PROVIDED CLINICAL HISTORY: Epigastric pain COMPARISON: 12/10/2018 FINDINGS: The visualized lung bases are free of significant opacity. The previously described left renal calculus is now present in the region of the left renal pelvis. T his again measures around 7 mm. No associated obstructive changes evident. Subcentimeter hypodensities involve each kidney likely reflecting cysts. Benign-appearing calcified splenic lesion is again noted. The liver, pancreas and adrenal glands appear unremarkable. There is no bowel dilatation, inflammatory fat stranding, free fluid or free air apparent. Scattered vascular calcifications are seen. Right femoral venous catheter. The osseous structures dem onstrate no concerning lytic or blastic lesions. IMPRESSION: 7 mm left renal pelvic calculus without evidence for hydronephrosis.
[2018-12-17] MEDS: Polyethylene Glycol 3350 17 GM Packet PO PRN (11:10)
[2018-12-17] MEDS: Folic Acid 1 MG TAB PO SCH (11:10)
[2018-12-17] MEDS: Pantoprazole 40 MG VIAL IVP SCH (11:10)
[2018-12-17] MEDS: Nicotine 21 MG PATCH TD SCH (11:10)
[2018-12-17] MEDS: Potassium Chloride 10 MEQ TAB PO SCH (11:20)
[2018-12-17] MEDS: HYDROcodone/Acetaminophen 5/325 mg Tablet PO PRN (11:30)
[2018-12-17 11:57] LABS: ALT (SGPT) 21 U/L (8-55); AST (SGOT) 17 U/L (5-34); Alkaline Phosphatase 90 U/L (40-150); Anion Gap 9 mmol/L (10-20); BUN (Urea Nitrogen) 5 mg/dL (9.8-20.1); Bilirubin, Total 0.3 mg/dL (0.2-1.2); Calc. Creatinine Clearance 95 mL/min (70-130); Calcium 8.9 mg/dL (7.8-10.44); Carbon Dioxide 24 mmol/L (23-31); Chloride 107 mmol/L (98-107); Estimated GFR-MDRD 81; Globulin 2.4 g/dL (2.4-3.5); Glucose 103 mg/dL (83-110); Lipase 104 U/L (8-78); Protein, Total 5.4 g/dL (6.0-8.3); Sodium 136 mmol/L (136-145)
[2018-12-17] MEDS ORDERED: Iron Sucrose Complex 100 MG in Sodium Chloride 0.9% 100 ML IVPB SCH (13:45)
[2018-12-17] MEDS ORDERED: Iron, Sodium Ferric Gluconate 125 MG in Sodium Chloride 0.9% 100 ML IVPB SCH (14:00)
--- NOTE | 2018-12-17 14:51 | PRG ---
DATE OF SERVICE: 12/17/2018 REASON FOR VISIT: GI followup. SUBJECTIVE: Ms. Carter states still some epigastric upper quadrant pain when she eats. It is about 80% better than when she came in. She has had no overt bleeding. She had a CAT scan today, that did not show any other cause of her pain. She had an ultrasound yesterday. MEDICATIONS: 1. Bentyl. 2. Depakote. 3. Folvite. 4. [place]. 5. Morphine p.r.n. 6. Zofran. 7. Protonix IV q.12. 8. Seroquel. 9. Topamax. OBJECTIVE: VITAL SIGNS: Temperature 97, pulse 85, blood pressure 125/57. GENERAL: She is resting in bed. Her is at bedside. ABDOMEN: Soft and nontender without rebound or guarding. LABORATORY STUDIES: White count 7.7, hemoglobin 7.7, and platelets 340. Liver function tests normal. Lipase is 104 and gastrin 653 that was on PPI. CAT scan of the abdomen and pelvis showed a 7-mm left renal pelvic calculi. No changes in the upper quadrant inflammation, bowel stranding, or pancreatitis. Ultrasound of the gallbladder was normal on 12/16, common bile duct is 4.5 cm. Gastric biopsy negative for H pylori. ASSESSMENT: 1. Epigastric pain and reported hematemesis, improved and resolved respectively. 2. Ulcer at the apex of the duodenum. This has been recurrent in the past. Apparently, she was offered proton pump inhibitor that she ran out when she was in [place]. She denies taking NSAIDs and states she only takes Tylenol for pain. Therefore, gastrin was checked, which was mildly elevated at 500 to 600. Biopsies negative for H pylori. The ulcer itself was not biopsied, benign appearance, it has been present in the past this location. Overall, pain is much better. Ultrasound and CT showed no signs or etiology for the pain. She does have mildly elevated lipase but is less than two times elevated normal limits and does not represent pancreatitis in my opinion. RECOMMENDATIONS: 1. [place] diet. Avoidance of NSAIDs. Switch to p.o. PPI b.i.d. 2. I would give her dose of IV iron before she leaves. She is pretty significantly anemic and had a reaction to blood transfusion on admission. She can follow up in our office in 1-[address] Tripathi, primary gastrologist. May be reasonable to consider further workup for gastrinoma in light of her multiple history of polyps in the past, most other features of history, I am not aware of and I will talk to Dr. Tripathi about that on Tuesday when he returns. I think she should probably have a repeat upper endoscopy in 4 to 6 weeks to ensure healing of the ulcer. If it is not healing, the biopsies to rule out malignancy, although it had a very bland, benign appearance on endoscopy. Job ID: [id number]
[2018-12-17 15:07] VITALS: BP 101/55; TEMP 98
== END 2018-12-17 19:10 | disposition home or self-care (01) | DRG 379 ==
LOC: ERS 13:54 → ERHOLD 15:13 → 2NO 23:36
PROVIDERS: ADMIT Internal Medicine; ATTEND Internal Medicine
PROC: 30233N1 Transfusion of Nonautologous Red Blood Cells into Peripheral Vein, Percutaneous Approach (ICD-10-PCS; 2018-12-10)
PROC: 0DB78ZX Excision of Stomach, Pylorus, Via Natural or Artificial Opening Endoscopic, Diagnostic (ICD-10-PCS; principal; 2018-12-11)
PROC: 06HY33Z Insertion of Infusion Device into Lower Vein, Percutaneous Approach (ICD-10-PCS; 2018-12-12)
DX: K26.4 Chronic or unspecified duodenal ulcer with hemorrhage (principal); F31.9 Bipolar disorder, unspecified; F41.0 Panic disorder [episodic paroxysmal anxiety]; E66.9 Obesity, unspecified; K44.9 Diaphragmatic hernia without obstruction or gangrene; K29.71 Gastritis, unspecified, with bleeding; D64.9 Anemia, unspecified; Z90.49 Acquired absence of other specified parts of digestive tract; Z90.710 Acquired absence of both cervix and uterus; Z88.0 Allergy status to penicillin; Z79.899 Other long term (current) drug therapy; Z68.32 Body mass index [BMI] 32.0-32.9, adult
CPT/HCPCS: 36415; 36430; 71045; 74177; 76705; 80048; 80053; 80185; 82941; 83605; 83690; 85014; 85018; 85025; 86850; 86900; 86901; 88305; 88312; 93005; 96365; 96366; 96375; C9113; J1200; J2001; J2270; J2405; J2704; J2916; J2930; J3010; J3490; P9016; Q9961

== ENCOUNTER 2020-06-19 14:37 | Outpatient (CLI) | payer MEDICARE ==
--- NOTE | 2020-06-19 15:20 | MMO ---
Bilateral MAMMO Bilat Diag DDI+PATY. CLINICAL HISTORY: Patient is 74 years old and is seen for diagnostic exam. The patient has no family history of breast cancer. The patient has no personal history of cancer. VIEWS: The views performed were: bilateral craniocaudal with tomosynthesis; bilateral mediolateral oblique with tomosynthesis; and bilateral mediolateral with tomosynthesis. FILMS COMPARED: The present examination has been compared to prior imaging studies performed at [facility] on 12/29/2012, 03/22/2016 and 03/24/2016. This study has been interpreted with the assistance of computer-aided detection. MAMMOGRAM FINDINGS: The breasts are heterogeneously dense, which could obscure a lesion on mammography. There are stable benign appearing calcifications seen in both breasts. There are no suspicious masses, suspicious calcifications, or new areas of architectural distortion. IMPRESSION: THERE IS NO MAMMOGRAPHIC EVIDENCE OF MALIGNANCY. A ROUTINE FOLLOW-UP MAMMOGRAM IN 1 YEAR IS RECOMMENDED. THE RESULTS OF THIS EXAM WERE SENT TO THE PATIENT. ACR BI-RADS Category 2 - Benign finding MAMMOGRAPHY NOTE: 1. A negative mammogram report should not delay a biopsy if a dominant of clinically suspicious mass is present. 2. Approximately 10% to 15% of breast cancers are not detected by mammography. 3. Adenosis and dense breasts may obscure an underlying neoplasm. Reported by: SABINO HILL MD Electonically Signed: [id number]
== END 2020-06-19 14:38 | disposition home or self-care (01) ==
LOC: BICMAMMO 14:37
PROVIDERS: ATTEND Internal Medicine
DX: R92.8 Other abnormal and inconclusive findings on diagnostic imaging of breast (principal)
CPT/HCPCS: 77066; G0279

== ENCOUNTER 2020-06-19 14:41 | Outpatient (CLI) | payer MEDICARE ==
--- NOTE | 2020-06-19 15:36 | BD ---
EXAM: Bone densitometry using DEXA HISTORY: 74 yo female. Screening for postmenopausal osteoporosis FINDINGS: L1--bone mineral density 0.798 g/sq cm; T score -1.7 ; Z score 0.3 L2--bone mineral density 0.713 g/sq cm; T score -2.9 ; Z score -0.6 L3--bone mineral density 0.655 g/sq cm; T score -3.9 ; Z score -1.5 L4--bone mineral density 0.8, 0.5 g/sq cm; T score -2.2 ; Z score 0.3 Total L1-L4--bone mineral density 0.747 g/sq cm; T score -2.7 ; Z score -0.4 Left femoral neck--bone mineral density0.534; T score -2.8 ; Z score -0.8 Total proximal left femur--bone mineral density 0.637; T score -2.5 ; Z score -0.8 There has been an interval improvement of 14.1% in the BMD of the lumbar spine and a reduction of 6 .6% in the BMD of the proximal femur since the previous study of 01/23/2013. IMPRESSION: Osteoporosis
== END 2020-06-19 14:42 | disposition home or self-care (01) ==
LOC: BICMAMMO 14:41
PROVIDERS: ATTEND Internal Medicine
DX: Z13.820 Encounter for screening for osteoporosis (principal); M81.0 Age-related osteoporosis without current pathological fracture
CPT/HCPCS: 77080

== ENCOUNTER 2021-09-10 11:34 | Outpatient (CLI) | payer MEDICARE | END 2021-09-10 11:35 | disposition home or self-care (01) | LOC: BICMAMMO 11:34 | PROVIDERS: ATTEND Registered Nurse | DX: Z12.31 Encounter for screening mammogram for malignant neoplasm of breast (principal) | CPT/HCPCS: 77063; 77067 ==

== ENCOUNTER 2022-09-10 09:53 | Outpatient (CLI) | payer MEDICARE | END 2022-09-10 09:54 | disposition home or self-care (01) | LOC: BICMAMMO 09:53 | PROVIDERS: ATTEND Registered Nurse | DX: M81.0 Age-related osteoporosis without current pathological fracture (principal); Z78.0 Asymptomatic menopausal state | CPT/HCPCS: 77080 ==

== ENCOUNTER 2024-05-19 07:57 | Inpatient (IN) | payer MEDICARE ==
[2024-05-19 08:46] LABS: #Basophils 0.03 10x3/uL (0.0-0.2); %Basophils 0.3 % (0.0-1.0); %Lymphocytes 15.6 % (21.0-51.0); %Monocytes 10.1 % (0.0-10.0); %Neutrophils 72.2 % (42.0-75.0); Hematocrit 43.9 % (36.0-47.0); Hemoglobin 14.2 g/dL (12.0-16.0); Mean Corpuscular HGB CONC 32.3 g/dL (32.0-36.0); Mean Corpuscular Hemoglobin 32.2 pg (27.0-31.0); Mean Corpuscular Volume 99.5 fL (78.0-98.0); Mean Platelet Volume 12.1 fL (7.4-10.4); Platelet Count 213 10x3/uL (130-400); RBC Distribution Width 16.9 % (11.5-14.5); Red Blood Cell (RBC) Count 4.41 mill/uL (4.20-5.40)
[2024-05-19 09:00] LABS: ALT (SGPT) 26 U/L (8-55); AST (SGOT) 65 U/L (5-34); Albumin 3.3 g/dL (3.4-4.8); Alkaline Phosphatase 86 U/L (40-110); Anion Gap 17 mmol/L (10-20); BUN (Urea Nitrogen) 24 mg/dL (9.8-20.1); Bilirubin, Total 0.4 mg/dL (0.2-1.2); Calc. Creatinine Clearance 0 mL/min (70-130); Calcium 9.5 mg/dL (7.8-10.44); Carbon Dioxide 30 mmol/L (23-31); Chloride 94 mmol/L (98-107); Estimated GFR 44; Globulin 4.2 g/dL (2.4-3.5); Glucose 100 mg/dL (83-110); Potassium 4.7 mmol/L (3.5-5.1); Protein, Total 7.5 g/dL (5.8-8.1); Sodium 136 mmol/L (136-145)
[2024-05-19 09:04] LABS: PTT 26.7 sec (22.9-36.1); Prothrombin Time 12.9 sec (12.0-14.7)
[2024-05-19 09:10] LABS: Critical Call Chem Troponin I NUR.GT2
[2024-05-19 09:11] LABS: Troponin I 0.252 ng/mL (< 0.028)
[2024-05-19] MEDS ORDERED: Enoxaparin 100 MG (1 mL) SYRINGE ONE (10:15)
[2024-05-19] MEDS ORDERED: Iopamidol-370 76% 500 ML MDV (1 ML CHARGE) ONE (11:29)
[2024-05-19 12:05] LABS: Troponin I 0.197 ng/mL (< 0.028)
[2024-05-19 13:17] VITALS: BMI 35.2
[2024-05-19 14:29] LABS: Critical Call Chem Troponin I 2NO.PLT; Troponin I 0.206 ng/mL (< 0.028)
[2024-05-19] MEDS ORDERED: Calcium Carbonate 500 MG ChewTAB PO PRN (17:54)
[2024-05-19] MEDS ORDERED: Glucagon 1 MG/ML KIT IM PRN (17:55)
[2024-05-19] MEDS ORDERED: Dextrose 50% Abboject 50 ML SYRINGE SLOW IVP PRN (17:55)
[2024-05-19] MEDS ORDERED: Dextrose 5% in Water 1,000 ML IV PRN (17:55)
[2024-05-19] MEDS: Dextrose 5 % And 0.9 % NaCl 1,000 ML IV SCH (18:47)
[2024-05-19 19:08] LABS: Bacteria/HPF None Seen HPF (None Seen); Bilirubin Negative (Negative); Blood, Urine Negative (Negative); Clarity Clear (Clear); Glucose, Urine (Dipstick) Normal (Negative); Ketone, Urine Trace mg/dL (Negative); Leukocyte Negative Leu/uL (Negative); Nitrite Negative (Negative); Protein, Urine (Dipstick) 10 mg/dL (Neg-Trace); RBC/HPF 0-3 HPF (0-3); Specific Gravity, Urine 1.038 (1.002-1.036); Squamous Epithelial 0-3 HPF (0-3); Urobilinogen Normal mg/dL (Less than 2)
[2024-05-19 19:14] LABS: Thyroid Stimulating Hormone 3.8675 uIU/mL (0.35-4.94)
[2024-05-19] MEDS: Atorvastatin Calcium 40 MG TAB PO SCH (20:25)
[2024-05-19] MEDS: Folic Acid 1 MG TAB PO SCH (20:25)
[2024-05-19] MEDS: Multivit, Therapeutic 1 TAB PO SCH (20:25)
[2024-05-19] MEDS: Thiamine 100 MG TAB PO SCH (20:25)
[2024-05-19 21:42] LABS: Vitamin D, 25 Hydroxy 83.1 ng/ml (> 30.0)
[2024-05-20 06:09] LABS: #Basophils 0.03 10x3/uL (0.0-0.2); %Basophils 0.5 % (0.0-1.0); %Eosinophils 1.7 % (0.0-10.0); %Lymphocytes 22.6 % (21.0-51.0); %Monocytes 13.1 % (0.0-10.0); %Neutrophils 61.6 % (42.0-75.0); Hematocrit 41.9 % (36.0-47.0); Hemoglobin 13.1 g/dL (12.0-16.0); Mean Corpuscular HGB CONC 31.3 g/dL (32.0-36.0); Mean Corpuscular Hemoglobin 31.4 pg (27.0-31.0); Mean Corpuscular Volume 100.5 fL (78.0-98.0); Mean Platelet Volume 12.3 fL (7.4-10.4); Platelet Count 202 10x3/uL (130-400); RBC Distribution Width 17.2 % (11.5-14.5); Red Blood Cell (RBC) Count 4.17 mill/uL (4.20-5.40)
[2024-05-20 06:25] LABS: ALT (SGPT) 20 U/L (8-55); AST (SGOT) 40 U/L (5-34); Albumin 2.7 g/dL (3.4-4.8); Alkaline Phosphatase 70 U/L (40-110); Anion Gap 13 mmol/L (10-20); BUN (Urea Nitrogen) 15 mg/dL (9.8-20.1); Bilirubin, Total 0.3 mg/dL (0.2-1.2); Calc. Creatinine Clearance 95 mL/min (70-130); Carbon Dioxide 31 mmol/L (23-31); Chloride 100 mmol/L (98-107); Estimated GFR 79; Globulin 3.5 g/dL (2.4-3.5); Glucose 104 mg/dL (83-110); Magnesium 2.1 mg/dL (1.6-2.6); Potassium 4.8 mmol/L (3.5-5.1); Protein, Total 6.2 g/dL (5.8-8.1); Sodium 139 mmol/L (136-145)
[2024-05-20 06:35] LABS: Cardiac Risk 3.2 (Less than 4.5); Cholesterol 170 mg/dl (< 200 Desired); HDL Cholesterol 53 mg/dL (>60 Neg Risk); LDL Cholesterol, Calculated 91 mg/dL; Phosphorus 3.1 mg/dL (2.3-4.7); Triglycerides 129 mg/dL (Less than 150)
[2024-05-20] MEDS: Acetaminophen 325 MG TAB PO PRN (06:35)
[2024-05-20] MEDS: Enoxaparin 40 MG (0.4 mL) SYRINGE SC SCH (08:31)
[2024-05-20] MEDS: Aspirin 81 mg Enteric Coated Tablet PO SCH (08:32)
[2024-05-20] MEDS: Pantoprazole DR 40 MG TAB PO SCH (08:33)
[2024-05-20] MEDS: Cyanocobalamin (Vitamin B-12) 1,000 MCG TAB PO SCH (08:33)
[2024-05-20 18:20] LABS: Amphetamine Not Detected (NotDetected); Barbiturates Screen Not Detected (NotDetected); Benzodiazepine Screen Not Detected (NotDetected); Cocaine Metabolite Screen Not Detected (NotDetected); Methadone Not Detected (NotDetected); Methamphetamine Not Detected (NotDetected); Opiate Screen Not Detected (NotDetected); Oxycodone Screen Not Detected (NotDetected); Phencyclidine (PCP) Not Detected (NotDetected); THC/Cannabinoid Screen Not Detected (NotDetected); Tricyclic Screen Detected (NotDetected)
[2024-05-21 17:36] VITALS: BP 172/95; TEMP 98
== END 2024-05-21 18:27 | disposition home health service (06) | DRG 71 ==
LOC: ERS 07:57 → 2SE 11:59
PROVIDERS: ADMIT Internal Medicine; ATTEND Internal Medicine
DX: G93.41 Metabolic encephalopathy (principal); N17.9 Acute kidney failure, unspecified; N18.2 Chronic kidney disease, stage 2 (mild); E66.9 Obesity, unspecified; Z68.35 Body mass index [BMI] 35.0-35.9, adult; F41.9 Anxiety disorder, unspecified; F31.9 Bipolar disorder, unspecified; H40.9 Unspecified glaucoma; Z88.0 Allergy status to penicillin; E86.0 Dehydration; Z79.899 Other long term (current) drug therapy; Z98.890 Other specified postprocedural states
CPT/HCPCS: 36415; 36416; 70450; 70496; 70498; 70551; 71045; 80053; 80061; 80164; 80306; 81001; 82140; 82306; 82607; 83735; 84100; 84443; 84484; 85025; 85379; 85610; 85730; 93005; 93306; 94760; 96360; 96361; 96372; J1650; J7042; Q9967

== ENCOUNTER 2024-07-13 18:26 | Inpatient (IN) | payer MEDICARE ==
[2024-07-13 19:25] LABS: Bilirubin Negative (Negative); Blood, Urine 1+ (Negative); CAUTI Indications for Culture Pelvic or flank pain; Clarity Clear (Clear); Glucose, Urine (Dipstick) Normal (Negative); Ketone, Urine Negative (Negative); Leukocyte Negative Leu/uL (Negative); Nitrite Negative (Negative); Protein, Urine (Dipstick) 10 mg/dL (Neg-Trace); Squamous Epithelial 0-3 HPF (0-3)
[2024-07-13 19:44] LABS: Specific Gravity, Urine 1.058 (1.002-1.036)
[2024-07-13] MEDS ORDERED: cefTRIAXone (ROCEPHIN) 1 GM VIAL ONE (19:44)
[2024-07-13] MEDS ORDERED: Heparin 5,000 UNITS/ML VIAL ONE (19:44)
[2024-07-13 19:50] LABS: Bacteria/HPF 1+ HPF (None Seen)
[2024-07-13 19:52] LABS: Urine Culture Reflex Yes Yes
[2024-07-13 20:06] LABS: ALT (SGPT) 18 U/L (8-55); AST (SGOT) 40 U/L (5-34); Albumin 1.8 g/dL (3.4-4.8); Alkaline Phosphatase 203 U/L (40-110); Anion Gap 14 mmol/L (10-20); BUN (Urea Nitrogen) 37 mg/dL (9.8-20.1); Bilirubin, Total 0.4 mg/dL (0.2-1.2); Calc. Creatinine Clearance 0 mL/min (70-130); Calcium 8.3 mg/dL (7.8-10.44); Carbon Dioxide 20 mmol/L (23-31); Chloride 104 mmol/L (98-107); Estimated GFR 65; Globulin 4.5 g/dL (2.4-3.5); Glucose 81 mg/dL (83-110); Protein, Total 6.3 g/dL (5.8-8.1); Sodium 132 mmol/L (136-145)
[2024-07-13 21:11] LABS: Hematocrit 46.2 % (36.0-47.0); Hemoglobin 14.8 g/dL (12.0-16.0); Mean Corpuscular Hemoglobin 31.8 pg (27.0-31.0); Mean Corpuscular Volume 99.4 fL (78.0-98.0); Mean Platelet Volume 10.9 fL (7.4-10.4); Platelet Count 189 10x3/uL (130-400); RBC Distribution Width 18.3 % (11.5-14.5); Red Blood Cell (RBC) Count 4.65 mill/uL (4.20-5.40)
[2024-07-13 21:21] LABS: PTT 29.9 sec (22.9-36.1)
[2024-07-13 21:23] LABS: INR-International Normal Ratio 1.1; Prothrombin Time 13.9 sec (12.0-14.7)
[2024-07-13 21:40] LABS: Anisocytosis SLIGHT = 6-15 cells HPF (0-5); Band 5 % (5-11); Burr Cells SLIGHT = 2-5 cells HPF (0-1); Large Platelets 3.9 % (0-5); Lymphocytes 8 % (21-51); Macrocytosis SLIGHT = 6-15 cells HPF (0-5); Metamyelocyte 3 % (0-0); Monocytes 4 % (0-10); Myelocyte 2 % (0-0); Neutrophil 78 % (42-75); Nucleated RBC (Manual Ct) 2 % (0); Ovalocytes SLIGHT = 2-5 cells HPF (0-1); Platelet Adequacy Comment Platelets Normal; Polychromasia SLIGHT = 2-3 cells HPF (0-2)
[2024-07-13] MEDS ORDERED: Acetaminophen 500 MG TAB ONE (22:01)
[2024-07-13 22:17] LABS: Potassium 4.6 mmol/L (3.5-5.1)
[2024-07-13] MEDS ORDERED: fentaNYL 50 mcg/mL 1 mL Vial ONE (22:39)
[2024-07-13 23:01] LABS: Troponin I 0.532 ng/mL (< 0.028)
[2024-07-14] MEDS: Latanoprost 0.005% Ophth Soln 2.5 ml Bottle EA EYE SCH (03:04)
[2024-07-14] MEDS: QUEtiapine 200 MG TAB PO SCH (03:04)
[2024-07-14] MEDS ORDERED: clonazePAM 1 MG TAB ONE (03:07)
[2024-07-14] MEDS ORDERED: metroNIDAZOLE 500 MG (100 mL) BAG ONE (03:07)
[2024-07-14] MEDS: clonazePAM 1 MG TAB PO SCH (03:14)
[2024-07-14] MEDS: metroNIDAZOLE 500 MG in Premix 1 BAG IVPB SCH (03:14)
[2024-07-14 06:31] LABS: Hematocrit 43.2 % (36.0-47.0); Hemoglobin 14.2 g/dL (12.0-16.0); Mean Corpuscular HGB CONC 32.9 g/dL (32.0-36.0); Mean Corpuscular Hemoglobin 31.4 pg (27.0-31.0); Mean Corpuscular Volume 95.6 fL (78.0-98.0); Mean Platelet Volume 11.2 fL (7.4-10.4); Platelet Count 208 10x3/uL (130-400); RBC Distribution Width 18.1 % (11.5-14.5); Red Blood Cell (RBC) Count 4.52 mill/uL (4.20-5.40)
[2024-07-14 06:37] LABS: Troponin I 0.482 ng/mL (< 0.028)
[2024-07-14 06:48] LABS: Anisocytosis SLIGHT = 6-15 cells HPF (0-5); Band 3 % (5-11); Eosinophils 1 % (0-10); Hypochromia SLIGHT = 6-15 cells HPF (0-5); Lymphocytes 8 % (21-51); Metamyelocyte 1 % (0-0); Monocytes 7 % (0-10); Myelocyte 2 % (0-0); Neutrophil 78 % (42-75); Nucleated RBC (Manual Ct) 2 % (0); Platelet Adequacy Comment Platelets Normal; Polychromasia SLIGHT = 2-3 cells HPF (0-2); Target Cells SLIGHT = 2-5 cells HPF (0-1); Toxic Granulation SLIGHT; Vacuoles SLIGHT
[2024-07-14] MEDS ORDERED: Iopamidol 15 ML ONE (07:55)
[2024-07-14] MEDS ORDERED: fentaNYL 50 mcg/mL 1 mL Vial ONE ×2 (10:32→11:59)
[2024-07-14] MEDS: Divalproex Sodium 250 MG (DR) TAB PO SCH (11:15)
[2024-07-14 12:31] LABS: PTT 188.9 sec (22.9-36.1)
[2024-07-14 12:47] LABS: ALT (SGPT) 15 U/L (8-55); AST (SGOT) 29 U/L (5-34); Albumin 1.9 g/dL (3.4-4.8); Alkaline Phosphatase 237 U/L (40-110); Anion Gap 15 mmol/L (10-20); BUN (Urea Nitrogen) 31 mg/dL (9.8-20.1); Bilirubin, Total 0.5 mg/dL (0.2-1.2); Calc. Creatinine Clearance 93 mL/min (70-130); Calcium 9.2 mg/dL (7.8-10.44); Carbon Dioxide 22 mmol/L (23-31); Chloride 103 mmol/L (98-107); Estimated GFR 78; Globulin 4.7 g/dL (2.4-3.5); Glucose 108 mg/dL (83-110); Potassium 4.4 mmol/L (3.5-5.1); Protein, Total 6.6 g/dL (5.8-8.1); Sodium 136 mmol/L (136-145)
[2024-07-14 12:59] VITALS: BMI 38.2
[2024-07-14] MEDS: Pantoprazole 40 MG VIAL IVP SCH (14:07)
[2024-07-14] MEDS ORDERED: cefTRIAXone\\ROCEPHIN 1 GM in Sodium Chloride 0.9% 100 ML IVPB SCH (16:00)
[2024-07-14] MEDS: Heparin 25,000 units/D5W 500 ML IV SCH (16:08)
[2024-07-14] MEDS: Ezetimibe 10 MG TAB PO SCH (16:09)
[2024-07-14] MEDS: Timolol 0.5% Ophth Soln 5 ml Bottle EA EYE SCH (16:11)
[2024-07-14] MEDS: cefTRIAXone\\ROCEPHIN 2 GM in Sodium Chloride 0.9% 100 ML IVPB SCH (16:17)
[2024-07-14] MEDS: Sodium Chloride 0.9% 1,000 ML IV SCH (17:40)
[2024-07-14] MEDS: Morphine 4 MG/ML VIAL SLOW IVP SCH (17:54)
[2024-07-14] MEDS: Gabapentin 300 MG CAP PO SCH (20:56)
[2024-07-14] MEDS ORDERED: Non-Formulary Item 1 EACH (Gabapentin [Neurontin] 600 MG Tablet) PO SCH (21:00)
[2024-07-14 22:03] LABS: Influenza A by NAA Not Detected (NotDetected); Influenza B by NAA Not Detected (NotDetected); RSV by NAA Not Detected (NotDetected); SARS-CoV-2 NAA Rapid Test Not Detected (NotDetected)
[2024-07-14 23:48] LABS: PTT 199.3 sec (22.9-36.1)
[2024-07-15 02:55] LABS: Hematocrit 42.7 % (36.0-47.0); Hemoglobin 13.3 g/dL (12.0-16.0); Mean Corpuscular HGB CONC 31.1 g/dL (32.0-36.0); Mean Corpuscular Hemoglobin 31.4 pg (27.0-31.0); Mean Corpuscular Volume 100.9 fL (78.0-98.0); Mean Platelet Volume 11.5 fL (7.4-10.4); Platelet Count 200 10x3/uL (130-400); RBC Distribution Width 18.6 % (11.5-14.5); Red Blood Cell (RBC) Count 4.23 mill/uL (4.20-5.40)
[2024-07-15 03:24] LABS: ALT (SGPT) 13 U/L (8-55); AST (SGOT) 23 U/L (5-34); Albumin 1.7 g/dL (3.4-4.8); Alkaline Phosphatase 207 U/L (40-110); Anion Gap 14 mmol/L (10-20); BUN (Urea Nitrogen) 24 mg/dL (9.8-20.1); Bilirubin, Total 0.2 mg/dL (0.2-1.2); Calc. Creatinine Clearance 78 mL/min (70-130); Calcium 8.6 mg/dL (7.8-10.44); Carbon Dioxide 23 mmol/L (23-31); Chloride 102 mmol/L (98-107); Estimated GFR 64; Globulin 4.4 g/dL (2.4-3.5); Glucose 105 mg/dL (83-110); Potassium 4.9 mmol/L (3.5-5.1); Protein, Total 6.1 g/dL (5.8-8.1); Sodium 134 mmol/L (136-145)
[2024-07-15 05:45] LABS: Anisocytosis SLIGHT = 6-15 cells HPF (0-5); Band 3 % (5-11); Eosinophils 1 % (0-10); Lymphocytes 5 % (21-51); Macrocytosis SLIGHT = 6-15 cells HPF (0-5); Metamyelocyte 2 % (0-0); Monocytes 4 % (0-10); Myelocyte 1 % (0-0); Neutrophil 84 % (42-75); Platelet Adequacy Comment Platelets Normal; Polychromasia SLIGHT = 2-3 cells HPF (0-2); Toxic Granulation SLIGHT
[2024-07-15] MEDS: Morphine 4 MG/ML VIAL SLOW IVP PRN (09:37)
[2024-07-15] MEDS: Heparin 10,000 UNITS/ 10 ML VIAL SLOW IVP SCH (10:44)
[2024-07-15] MEDS: Brimonidine Tartrate 0.2% Ophth Soln 5 ml Bottle EA EYE SCH (17:08)
[2024-07-15 18:10] LABS: PTT 153.8 sec (22.9-36.1)
[2024-07-16 04:29] LABS: Hematocrit 35.7 % (36.0-47.0); Hemoglobin 11.2 g/dL (12.0-16.0); Mean Corpuscular HGB CONC 31.4 g/dL (32.0-36.0); Mean Corpuscular Hemoglobin 31.4 pg (27.0-31.0); Mean Platelet Volume 10.1 fL (7.4-10.4); Platelet Count 236 10x3/uL (130-400); RBC Distribution Width 18.5 % (11.5-14.5); Red Blood Cell (RBC) Count 3.57 mill/uL (4.20-5.40)
[2024-07-16 04:40] LABS: ALT (SGPT) 8 U/L (8-55); AST (SGOT) 15 U/L (5-34); Albumin 1.6 g/dL (3.4-4.8); Alkaline Phosphatase 161 U/L (40-110); Anion Gap 13 mmol/L (10-20); BUN (Urea Nitrogen) 18 mg/dL (9.8-20.1); Bilirubin, Total 0.2 mg/dL (0.2-1.2); Calc. Creatinine Clearance 96 mL/min (70-130); Calcium 8.9 mg/dL (7.8-10.44); Carbon Dioxide 27 mmol/L (23-31); Chloride 100 mmol/L (98-107); Estimated GFR 79; Globulin 4.1 g/dL (2.4-3.5); Glucose 101 mg/dL (83-110); Potassium 4.5 mmol/L (3.5-5.1); Protein, Total 5.7 g/dL (5.8-8.1); Sodium 135 mmol/L (136-145)
[2024-07-16 05:15] LABS: Anisocytosis SLIGHT = 6-15 cells HPF (0-5); Band 3 % (5-11); Lymphocytes 5 % (21-51); Macrocytosis MODERATE=16-30 cells HPF (0-5); Metamyelocyte 2 % (0-0); Monocytes 2 % (0-10); Myelocyte 3 % (0-0); Neutrophil 85 % (42-75); Nucleated RBC (Manual Ct) 1 % (0); Platelet Adequacy Comment Platelets Normal; Polychromasia SLIGHT = 2-3 cells HPF (0-2); Target Cells SLIGHT = 2-5 cells HPF (0-1); Toxic Granulation SLIGHT
[2024-07-16 15:57] LABS: Actual Bicarbonate (HCO3v) 28.3 mEq/L (22-28); Base Excess 1.1 mEq/L (-2.0 to +3.0); Calcium, Ionized (venous) 1.18 mmol/L (1.16-1.32); Chloride (VBG) 101 mmol/L (98-106); Hematocrit-VBG 36 % (36.0-47.0); Hemoglobin (Hb) 12.1 g/dL (11.7-16.1); Potassium (VBG) 4.27 mmol/L (3.70-5.30); Sodium 135 mmol/L (133-146); pH (venous) 7.313 (7.32-7.43)
[2024-07-17 05:27] LABS: ALT (SGPT) 7 U/L (8-55); AST (SGOT) 17 U/L (5-34); Albumin 1.7 g/dL (3.4-4.8); Alkaline Phosphatase 142 U/L (40-110); Anion Gap 10 mmol/L (10-20); BUN (Urea Nitrogen) 12 mg/dL (9.8-20.1); Bilirubin, Total 0.3 mg/dL (0.2-1.2); Calc. Creatinine Clearance 93 mL/min (70-130); Calcium 9.2 mg/dL (7.8-10.44); Carbon Dioxide 30 mmol/L (23-31); Chloride 100 mmol/L (98-107); Estimated GFR 79; Globulin 4.5 g/dL (2.4-3.5); Glucose 98 mg/dL (83-110); Potassium 4.7 mmol/L (3.5-5.1); Protein, Total 6.2 g/dL (5.8-8.1); Sodium 135 mmol/L (136-145)
[2024-07-17 05:29] LABS: Hematocrit 37.2 % (36.0-47.0); Hemoglobin 11.8 g/dL (12.0-16.0); Mean Corpuscular HGB CONC 31.7 g/dL (32.0-36.0); Mean Corpuscular Hemoglobin 31.4 pg (27.0-31.0); Mean Corpuscular Volume 98.9 fL (78.0-98.0); Mean Platelet Volume 10.3 fL (7.4-10.4); Platelet Count 260 10x3/uL (130-400); RBC Distribution Width 18.4 % (11.5-14.5); Red Blood Cell (RBC) Count 3.76 mill/uL (4.20-5.40)
[2024-07-17 07:57] LABS: Band 4 % (5-11); Lymphocytes 9 % (21-51); Metamyelocyte 1 % (0-0); Monocytes 3 % (0-10); Myelocyte 2 % (0-0); Neutrophil 79 % (42-75); Platelet Adequacy Comment Platelets Normal; Polychromasia SLIGHT = 2-3 cells HPF (0-2); Reactive Lymphocytes 2 % (0-10)
[2024-07-17 09:06] LABS: Actual Bicarbonate (HCO3v) 29.5 mEq/L (22-28); Base Excess 1.3 mEq/L (-2.0 to +3.0); Calcium, Ionized (venous) 1.25 mmol/L (1.16-1.32); Chloride (VBG) 99 mmol/L (98-106); Hematocrit-VBG 36 % (36.0-47.0); Hemoglobin (Hb) 12.3 g/dL (11.7-16.1); Sodium 135 mmol/L (133-146); pH (venous) 7.276 (7.32-7.43)
[2024-07-17] MEDS: acetaZOLAMIDE Sodium 500 mg Vial IVP SCH (09:26)
[2024-07-17] MEDS: Apixaban 5 MG TAB PO SCH (09:26)
[2024-07-17] MEDS ORDERED: Sodium Bicarbonate 2.5 MEQ/5 ML SDV ONE (10:02)
[2024-07-17] MEDS ORDERED: Lidocaine 1% PF 5 ML VIAL ONE (10:02)
[2024-07-17] MEDS: Albumin 25% 25 GM (100 mL) BOT IVPB SCH (23:24)
[2024-07-17] MEDS: Sodium Chloride 0.9% 500 ML IV SCH (23:44)
[2024-07-18] MEDS: traMADol HCl 50 MG TAB PO PRN (03:05)
[2024-07-18 04:22] LABS: ALT (SGPT) 5 U/L (8-55); AST (SGOT) 14 U/L (5-34); Albumin 2.1 g/dL (3.4-4.8); Alkaline Phosphatase 96 U/L (40-110); Anion Gap 13 mmol/L (10-20); BUN (Urea Nitrogen) 10 mg/dL (9.8-20.1); Bilirubin, Total 0.3 mg/dL (0.2-1.2); Calc. Creatinine Clearance 102 mL/min (70-130); Calcium 8.9 mg/dL (7.8-10.44); Carbon Dioxide 26 mmol/L (23-31); Chloride 100 mmol/L (98-107); Estimated GFR 80; Globulin 3.6 g/dL (2.4-3.5); Glucose 103 mg/dL (83-110); Potassium 4.2 mmol/L (3.5-5.1); Protein, Total 5.7 g/dL (5.8-8.1); Sodium 135 mmol/L (136-145)
[2024-07-18 04:30] LABS: Hematocrit 30.4 % (36.0-47.0); Hemoglobin 9.9 g/dL (12.0-16.0); Mean Corpuscular HGB CONC 32.6 g/dL (32.0-36.0); Mean Corpuscular Hemoglobin 31.8 pg (27.0-31.0); Mean Corpuscular Volume 97.7 fL (78.0-98.0); Mean Platelet Volume 10.3 fL (7.4-10.4); Platelet Count 238 10x3/uL (130-400); RBC Distribution Width 18.1 % (11.5-14.5); Red Blood Cell (RBC) Count 3.11 mill/uL (4.20-5.40)
[2024-07-18 05:07] LABS: Actual Bicarbonate (HCO3v) 26.2 mEq/L (22-28); Base Excess 0.9 mEq/L (-2.0 to +3.0); Calcium, Ionized (venous) 1.23 mmol/L (1.16-1.32); Chloride (VBG) 101 mmol/L (98-106); Hematocrit-VBG 32 % (36.0-47.0); Potassium (VBG) 4.25 mmol/L (3.70-5.30); Sodium 134 mmol/L (133-146); pH (venous) 7.384 (7.32-7.43)
[2024-07-18 06:45] LABS: Anisocytosis SLIGHT = 6-15 cells HPF (0-5); Band 3 % (5-11); Hypochromia SLIGHT = 6-15 cells HPF (0-5); Lymphocytes 2 % (21-51); Metamyelocyte 2 % (0-0); Monocytes 3 % (0-10); Myelocyte 2 % (0-0); Neutrophil 88 % (42-75); Platelet Adequacy Comment Platelets Normal; Polychromasia SLIGHT = 2-3 cells HPF (0-2); Target Cells SLIGHT = 2-5 cells HPF (0-1); Toxic Granulation SLIGHT
[2024-07-18] MEDS: Pantoprazole DR 40 MG TAB PO SCH (09:44)
[2024-07-19 04:40] LABS: #Basophils 0.07 10x3/uL (0.0-0.2); %Basophils 0.6 % (0.0-1.0); %Eosinophils 0.6 % (0.0-10.0); %Lymphocytes 14.7 % (21.0-51.0); %Monocytes 9.4 % (0.0-10.0); %Neutrophils 69.9 % (42.0-75.0); Hematocrit 31.8 % (36.0-47.0); Mean Corpuscular HGB CONC 31.4 g/dL (32.0-36.0); Mean Corpuscular Hemoglobin 31.3 pg (27.0-31.0); Mean Corpuscular Volume 99.4 fL (78.0-98.0); Mean Platelet Volume 10.3 fL (7.4-10.4); Platelet Count 258 10x3/uL (130-400)
[2024-07-19 04:58] LABS: Anion Gap 10 mmol/L (10-20); BUN (Urea Nitrogen) 9 mg/dL (9.8-20.1); Calc. Creatinine Clearance 110 mL/min (70-130); Calcium 9.1 mg/dL (7.8-10.44); Carbon Dioxide 25 mmol/L (23-31); Chloride 103 mmol/L (98-107); Estimated GFR 87; Glucose 82 mg/dL (83-110); Potassium 4.3 mmol/L (3.5-5.1); Sodium 134 mmol/L (136-145)
[2024-07-19] MEDS ORDERED: Iopamidol-370 76% 500 ML MDV (1 ML CHARGE) ONE (11:52)
[2024-07-19] MEDS: Sodium Chloride 0.45% 1,000 ML IV SCH (14:52)
[2024-07-19] MEDS: HYDROcodone/Acetaminophen 7.5/325 mg Tablet PO PRN (23:27)
[2024-07-20 04:42] LABS: #Basophils 0.05 10x3/uL (0.0-0.2); %Basophils 0.4 % (0.0-1.0); %Lymphocytes 12.9 % (21.0-51.0); %Monocytes 10.4 % (0.0-10.0); %Neutrophils 73.1 % (42.0-75.0); Hematocrit 30.1 % (36.0-47.0); Hemoglobin 9.5 g/dL (12.0-16.0); Mean Corpuscular HGB CONC 31.6 g/dL (32.0-36.0); Mean Corpuscular Hemoglobin 31.5 pg (27.0-31.0); Mean Corpuscular Volume 99.7 fL (78.0-98.0); Mean Platelet Volume 10.9 fL (7.4-10.4); Platelet Count 279 10x3/uL (130-400); RBC Distribution Width 17.7 % (11.5-14.5); Red Blood Cell (RBC) Count 3.02 mill/uL (4.20-5.40)
[2024-07-20] MEDS: clonazePAM 1 MG TAB PO SCH (09:33)
[2024-07-20 12:33] VITALS: BMI 39.0
[2024-07-20] MEDS: QUEtiapine 100 MG TAB PO SCH (20:25)
[2024-07-20] MEDS: Calcium Carbonate 500 MG ChewTAB PO PRN (20:30)
[2024-07-21 02:46] LABS: Hematocrit 36.9 % (36.0-47.0); Hemoglobin 12.2 g/dL (12.0-16.0); Mean Corpuscular HGB CONC 33.1 g/dL (32.0-36.0); Mean Corpuscular Hemoglobin 31.4 pg (27.0-31.0); Mean Corpuscular Volume 95.1 fL (78.0-98.0); Mean Platelet Volume 11.2 fL (7.4-10.4); Platelet Count 223 10x3/uL (130-400); RBC Distribution Width 17.2 % (11.5-14.5); Red Blood Cell (RBC) Count 3.88 mill/uL (4.20-5.40)
[2024-07-21 06:25] LABS: Anion Gap 12 mmol/L (10-20); BUN (Urea Nitrogen) 8 mg/dL (9.8-20.1); Calc. Creatinine Clearance 108 mL/min (70-130); Calcium 10.1 mg/dL (7.8-10.44); Carbon Dioxide 27 mmol/L (23-31); Chloride 100 mmol/L (98-107); Estimated GFR 89; Glucose 119 mg/dL (83-110); Potassium 3.8 mmol/L (3.5-5.1); Sodium 135 mmol/L (136-145)
[2024-07-21] MEDS: Lidocaine 4% Patch TD SCH (12:59)
[2024-07-21] MEDS: HYDROcodone/Acetaminophen 10/325 mg Tablet PO PRN (19:48)
[2024-07-21] MEDS: Transdermal Patch Removal TOP SCH (21:06)
[2024-07-22] MEDS: Lidocaine 4% Patch TD SCH (12:39)
[2024-07-22] MEDS: Ibuprofen 800 MG TAB PO SCH (14:08)
[2024-07-23 05:31] LABS: Hemoglobin 10.2 g/dL (12.0-16.0); Mean Corpuscular HGB CONC 31.9 g/dL (32.0-36.0); Mean Corpuscular Hemoglobin 31.1 pg (27.0-31.0); Mean Corpuscular Volume 97.6 fL (78.0-98.0); Mean Platelet Volume 11.8 fL (7.4-10.4); Platelet Count 292 10x3/uL (130-400); RBC Distribution Width 17.3 % (11.5-14.5); Red Blood Cell (RBC) Count 3.28 mill/uL (4.20-5.40)
[2024-07-23 05:56] LABS: Anion Gap 12 mmol/L (10-20); BUN (Urea Nitrogen) 9 mg/dL (9.8-20.1); Calc. Creatinine Clearance 94 mL/min (70-130); Calcium 9.3 mg/dL (7.8-10.44); Carbon Dioxide 30 mmol/L (23-31); Chloride 99 mmol/L (98-107); Estimated GFR 78; Glucose 86 mg/dL (83-110); Sodium 137 mmol/L (136-145)
[2024-07-23] MEDS: Acetaminophen 325 MG TAB PO PRN (05:58)
[2024-07-24] MEDS ORDERED: traMADol HCl 50 MG TAB PO PRN (07:48)
[2024-07-24] MEDS: Apixaban 5 MG TAB PO SCH (08:09)
[2024-07-25 08:21] VITALS: BP 112/77; TEMP 98.3
== END 2024-07-25 12:08 | disposition swing bed (61) | DRG 853 ==
LOC: ERS 18:26 → ERHOLD 19:31 → IMCU/EMU 07-14 12:27 → T4-B 07-22 15:05
PROVIDERS: ADMIT Internal Medicine; ATTEND Internal Medicine
PROC: 0T778DZ Dilation of Left Ureter with Intraluminal Device, Via Natural or Artificial Opening Endoscopic (ICD-10-PCS; principal; 2024-07-14)
PROC: BT1FZZZ Fluoroscopy of Left Kidney, Ureter and Bladder (ICD-10-PCS; 2024-07-14)
PROC: 02HV33Z Insertion of Infusion Device into Superior Vena Cava, Percutaneous Approach (ICD-10-PCS; 2024-07-17)
PROC: B518ZZA Fluoroscopy of Superior Vena Cava, Guidance (ICD-10-PCS; 2024-07-17)
DX: A41.51 Sepsis due to Escherichia coli [E. coli] (principal); I26.99 Other pulmonary embolism without acute cor pulmonale; J96.01 Acute respiratory failure with hypoxia; N10 Acute pyelonephritis; I50.32 Chronic diastolic (congestive) heart failure; E87.1 Hypo-osmolality and hyponatremia; Z16.11 Resistance to penicillins; Z16.24 Resistance to multiple antibiotics; E78.5 Hyperlipidemia, unspecified; F31.9 Bipolar disorder, unspecified; N20.0 Calculus of kidney; E66.01 Morbid (severe) obesity due to excess calories; R53.1 Weakness; H40.9 Unspecified glaucoma; Z79.899 Other long term (current) drug therapy; Z88.0 Allergy status to penicillin; Z88.8 Allergy status to other drugs, medicaments and biological substances; Z87.11 Personal history of peptic ulcer disease; Z68.37 Body mass index [BMI] 37.0-37.9, adult
CPT/HCPCS: 0241U; 36415; 36416; 36573; 51701; 71045; 74178; 74420; 76705; 80048; 80053; 81001; 82306; 82805; 83605; 84145; 84484; 85025; 85027; 85730; 87086; 93306; 93970; 94660; 94760; 96374; 96375; C1751; C1769; C2617; J0696; J1120; J1644; J2272; J2470; J3010; J7030; P9047; Q9967

== ENCOUNTER 2024-08-21 07:40 | Day surgery (SDC) | payer MEDICARE ==
[2024-08-20 11:29] VITALS: BMI 34.7
[2024-08-21] MEDS ORDERED: Sodium Chloride 0.9% 100 ML ONE (09:23)
[2024-08-21] MEDS ORDERED: cefTRIAXone (ROCEPHIN) 1 GM VIAL ONE (09:23)
[2024-08-21] MEDS ORDERED: Iopamidol 30 ML ONE (09:51)
[2024-08-21] MEDS ORDERED: Linezolid 600 MG in Premix 1 BAG IVPB SCH (10:00)
[2024-08-21] MEDS ORDERED: fentaNYL PF 100 MCG/2 ML SYRINGE ONE ×2 (10:31→12:10)
[2024-08-21] MEDS ORDERED: PROPOFOL 20 ML ONE (10:31)
[2024-08-21] MEDS ORDERED: Ondansetron PF 4 MG/2 ML Vial ONE (10:51)
[2024-08-21] MEDS ORDERED: Dexamethasone 4 mg/ml Vial ONE (10:51)
[2024-08-21] MEDS ORDERED: SUGAMMADEX SODIUM 200 MG/2 ML VIAL ONE (10:54)
[2024-08-21] MEDS ORDERED: Lidocaine 2% PF 5 ML VIAL ONE (10:59)
[2024-08-21] MEDS ORDERED: Rocuronium Bromide 10 MG/ML (10ML VIAL) ONE (10:59)
[2024-08-21] MEDS ORDERED: fentaNYL 50 mcg/mL 1 mL Vial ONE ×2 (12:40→12:58)
[2024-08-21 14:23] LABS: Hemoglobin 11.1 g/dL (12.0-16.0)
== END 2024-08-21 16:01 | disposition home or self-care (01) ==
LOC: SDC 07:40
PROVIDERS: ATTEND Urology
PROC: 0TF78ZZ Fragmentation in Left Ureter, Via Natural or Artificial Opening Endoscopic (ICD-10-PCS; principal; 2024-08-21)
PROC: 0T778DZ Dilation of Left Ureter with Intraluminal Device, Via Natural or Artificial Opening Endoscopic (ICD-10-PCS; 2024-08-21)
DX: N20.2 Calculus of kidney with calculus of ureter (principal); E78.5 Hyperlipidemia, unspecified; I25.10 Atherosclerotic heart disease of native coronary artery without angina pectoris; K21.9 Gastro-esophageal reflux disease without esophagitis; J96.00 Acute respiratory failure, unspecified whether with hypoxia or hypercapnia; Z90.49 Acquired absence of other specified parts of digestive tract; Z90.710 Acquired absence of both cervix and uterus; Z79.899 Other long term (current) drug therapy; Z88.0 Allergy status to penicillin; Z88.1 Allergy status to other antibiotic agents; Z96.659 Presence of unspecified artificial knee joint; Z98.890 Other specified postprocedural states
CPT/HCPCS: 52356; 74420; 82365; 85018; J0696; J1100; J2020; J2405; J2704; J3010; Q9967; 36415; 88300; C1747; C2617

== ENCOUNTER 2024-09-12 20:07 | Inpatient (IN) | payer MEDICARE ==
[~2024-09-12 20:07] MED LIST: Iopamidol-370 76% 500 ML MDV (1 ML CHARGE) ONE
[2024-09-12 21:03] LABS: #Basophils Less than 0.03 10x3/uL (0.0-0.2); %Basophils 0.3 % (0.0-1.0); %Eosinophils 1.3 % (0.0-10.0); %Lymphocytes 25.4 % (21.0-51.0); %Monocytes 14.4 % (0.0-10.0); %Neutrophils 58.1 % (42.0-75.0); Hematocrit 35.1 % (36.0-47.0); Hemoglobin 10.9 g/dL (12.0-16.0); Mean Corpuscular HGB CONC 31.1 g/dL (32.0-36.0); Mean Corpuscular Volume 102.9 fL (78.0-98.0); Mean Platelet Volume 10.1 fL (7.4-10.4); Platelet Count 478 10x3/uL (130-400); RBC Distribution Width 18.8 % (11.5-14.5); Red Blood Cell (RBC) Count 3.41 mill/uL (4.20-5.40)
[2024-09-12 21:17] LABS: Calc. Creatinine Clearance 0 mL/min (70-130); Estimated GFR 87; INR-International Normal Ratio 1.6; PTT 32.7 sec (22.9-36.1); Prothrombin Time 18.7 sec (12.0-14.7)
[2024-09-12 21:19] LABS: ALT (SGPT) 16 U/L (8-55); AST (SGOT) 34 U/L (5-34); Albumin 2.4 g/dL (3.4-4.8); Alkaline Phosphatase 126 U/L (40-110); Anion Gap 14 mmol/L (10-20); BUN (Urea Nitrogen) 12 mg/dL (9.8-20.1); Bilirubin, Total 0.3 mg/dL (0.2-1.2); CK (CPK) 16 U/L (29-168); Calcium 8.9 mg/dL (7.8-10.44); Carbon Dioxide 22 mmol/L (23-31); Chloride 106 mmol/L (98-107); Glucose 122 mg/dL (83-110); Lipase 18 U/L (8-78); Magnesium 2.5 mg/dL (1.6-2.6); Potassium 4.1 mmol/L (3.5-5.1); Protein, Total 7.4 g/dL (5.8-8.1); Sodium 138 mmol/L (136-145)
[2024-09-12 21:24] LABS: Troponin I 0.028 ng/mL (< 0.028)
[2024-09-12 21:47] LABS: Bacteria/HPF None Seen HPF (None Seen); Bilirubin Negative (Negative); Blood, Urine 3+ (Negative); CAUTI Indications for Culture Alt mental st,lethar; Clarity Extra Turbid (Clear); Glucose, Urine (Dipstick) Normal (Negative); Ketone, Urine Negative (Negative); Leukocyte 500 Leu/uL (Negative); Nitrite Negative (Negative); Protein, Urine (Dipstick) 70 mg/dL (Neg-Trace); RBC/HPF Greater than 50 HPF (0-3); Specific Gravity, Urine 1.024 (1.002-1.036); Squamous Epithelial 0-3 HPF (0-3); Urobilinogen Normal mg/dL (Less than 2); WBC/HPF Greater than 50 HPF (0-3)
[2024-09-12 22:01] LABS: Urine Culture Reflex Yes Yes
[2024-09-12] MEDS ORDERED: Acetaminophen 500 MG TAB ONE (22:11)
[2024-09-12] MEDS ORDERED: Morphine 2 MG/ML VIAL ONE (22:20)
[2024-09-12] MEDS ORDERED: Sodium Chloride 0.9% 100 ML ONE (22:21)
[2024-09-12] MEDS ORDERED: cefTRIAXone (ROCEPHIN) 2 GM VIAL ONE (22:21)
[2024-09-12] MEDS ORDERED: hydrALAZINE 20 MG/ML VIAL ONE (22:40)
[2024-09-12] MEDS ORDERED: Calcium Carbonate 500 MG ChewTAB PO PRN (23:11)
[2024-09-12] MEDS ORDERED: Ondansetron ODT 4 MG TAB PO PRN (23:11)
[2024-09-12] MEDS ORDERED: Acetaminophen 650 MG Suppository PR PRN (23:11)
[2024-09-12] MEDS ORDERED: Ondansetron PF 4 MG/2 ML Vial IVP PRN (23:11)
[2024-09-13 01:14] VITALS: BMI 32.1
[2024-09-13] MEDS: Acetaminophen 325 MG TAB PO PRN (04:19)
[2024-09-13 06:30] LABS: #Basophils 0.04 10x3/uL (0.0-0.2); %Basophils 0.3 % (0.0-1.0); %Eosinophils 1.5 % (0.0-10.0); %Lymphocytes 15.5 % (21.0-51.0); %Neutrophils 68.4 % (42.0-75.0); Hematocrit 34.4 % (36.0-47.0); Mean Corpuscular Hemoglobin 32.4 pg (27.0-31.0); Mean Corpuscular Volume 101.5 fL (78.0-98.0); Mean Platelet Volume 10.4 fL (7.4-10.4); Platelet Count 558 10x3/uL (130-400); RBC Distribution Width 18.8 % (11.5-14.5); Red Blood Cell (RBC) Count 3.39 mill/uL (4.20-5.40)
[2024-09-13 06:46] LABS: Calc. Creatinine Clearance 94 mL/min (70-130); Estimated GFR 90
[2024-09-13 06:47] LABS: Anion Gap 11 mmol/L (10-20); BUN (Urea Nitrogen) 11 mg/dL (9.8-20.1); Carbon Dioxide 27 mmol/L (23-31); Chloride 105 mmol/L (98-107); Glucose 110 mg/dL (83-110); Potassium 3.7 mmol/L (3.5-5.1); Sodium 139 mmol/L (136-145)
[2024-09-13] MEDS: clonazePAM 1 MG TAB PO PRN (07:38)
[2024-09-13] MEDS ORDERED: Famotidine/PF 20 mg/2ml Vial SLOW IVP SCH (09:00)
[2024-09-13] MEDS: Famotidine 20 MG TAB PO SCH (10:03)
[2024-09-13] MEDS: Apixaban 5 MG TAB PO SCH (10:03)
[2024-09-13] MEDS: Pantoprazole 40 MG DR.TAB PO SCH (10:04)
[2024-09-13] MEDS: Brimonidine Tartrate 0.2% Ophth Soln 5 ml Bottle EA EYE SCH (11:22)
[2024-09-13] MEDS: HYDROcodone/Acetaminophen 5/325 mg Tablet PO PRN (14:31)
[2024-09-13] MEDS: Linezolid 600 MG in Premix 1 BAG IVPB SCH (16:41)
[2024-09-13] MEDS: Ezetimibe 10 MG TAB PO SCH (20:21)
[2024-09-13] MEDS: QUEtiapine 200 MG TAB PO SCH (20:21)
[2024-09-13] MEDS: Cholecalciferol 1,000 UNITS (25 MCG) TAB PO SCH (20:22)
[2024-09-13] MEDS: Divalproex Sodium 250 MG DR.TAB PO SCH (20:22)
[2024-09-13] MEDS: Venlafaxine HCl XR 150 MG CAP PO SCH (20:22)
[2024-09-13] MEDS: Latanoprost 0.005% Ophth Soln 2.5 ml Bottle EA EYE SCH (20:22)
[2024-09-13] MEDS ORDERED: cefTRIAXone\\ROCEPHIN 1 GM in Sodium Chloride 0.9% 100 ML IVPB SCH (21:00)
[2024-09-14] MEDS: Pantoprazole 40 MG DR.TAB PO SCH (07:59)
[2024-09-14] MEDS: Fluconazole 100 MG TAB PO SCH (10:50)
[2024-09-14] MEDS: traMADol HCl 50 MG TAB PO PRN (14:36)
[2024-09-15 05:48] LABS: Hematocrit 29.1 % (36.0-47.0); Hemoglobin 8.8 g/dL (12.0-16.0); Mean Corpuscular HGB CONC 30.2 g/dL (32.0-36.0); Mean Corpuscular Hemoglobin 31.5 pg (27.0-31.0); Mean Corpuscular Volume 104.3 fL (78.0-98.0); Mean Platelet Volume 10.5 fL (7.4-10.4); Platelet Count 344 10x3/uL (130-400); RBC Distribution Width 18.4 % (11.5-14.5); Red Blood Cell (RBC) Count 2.79 mill/uL (4.20-5.40)
[2024-09-15 06:46] LABS: Anion Gap 11 mmol/L (10-20); BUN (Urea Nitrogen) 7 mg/dL (9.8-20.1); Calc. Creatinine Clearance 97 mL/min (70-130); Calcium 8.5 mg/dL (7.8-10.44); Carbon Dioxide 22 mmol/L (23-31); Chloride 101 mmol/L (98-107); Estimated GFR 90; Glucose 106 mg/dL (83-110); Potassium 3.7 mmol/L (3.5-5.1); Sodium 130 mmol/L (136-145)
[2024-09-15] MEDS: Fluconazole 100 MG TAB PO SCH (09:25)
[2024-09-15] MEDS ORDERED: Docusate 100 MG CAP PO PRN (11:30)
[2024-09-15] MEDS ORDERED: Polyethylene Glycol 3350 17 GM Packet PO PRN (11:30)
[2024-09-15] MEDS: Docusate 100 MG CAP PO SCH (12:35)
[2024-09-15] MEDS: Midodrine HCl 5 MG TAB PO SCH (12:35)
[2024-09-15] MEDS: Polyethylene Glycol 3350 17 GM Packet PO SCH (12:35)
[2024-09-16 04:38] LABS: Hematocrit 28.6 % (36.0-47.0); Hemoglobin 8.9 g/dL (12.0-16.0); Mean Corpuscular HGB CONC 31.1 g/dL (32.0-36.0); Mean Corpuscular Hemoglobin 31.6 pg (27.0-31.0); Mean Corpuscular Volume 101.4 fL (78.0-98.0); Mean Platelet Volume 10.7 fL (7.4-10.4); Platelet Count 339 10x3/uL (130-400); RBC Distribution Width 18.4 % (11.5-14.5); Red Blood Cell (RBC) Count 2.82 mill/uL (4.20-5.40)
[2024-09-16 05:01] LABS: Anion Gap 8 mmol/L (10-20); BUN (Urea Nitrogen) 7 mg/dL (9.8-20.1); Calc. Creatinine Clearance 91 mL/min (70-130); Calcium 8.9 mg/dL (7.8-10.44); Carbon Dioxide 28 mmol/L (23-31); Chloride 103 mmol/L (98-107); Estimated GFR 89; Glucose 86 mg/dL (83-110); Potassium 4.1 mmol/L (3.5-5.1); Sodium 135 mmol/L (136-145)
[2024-09-16] MEDS: Midodrine HCl 5 MG TAB PO SCH (08:55)
[2024-09-16] MEDS: Linezolid 600 MG in Premix 1 BAG IVPB SCH ×2 (10:49→20:58)
[2024-09-17] MEDS ORDERED: Iopamidol 30 ML ONE (15:09)
[2024-09-17] MEDS ORDERED: fentaNYL PF 100 MCG/2 ML SYRINGE ONE (15:10)
[2024-09-17] MEDS ORDERED: Lidocaine 1% PF 5 ML VIAL ONE ×2 (15:10→15:21)
[2024-09-17] MEDS ORDERED: Ondansetron PF 4 MG/2 ML Vial ONE (15:10)
[2024-09-17] MEDS ORDERED: PROPOFOL 200 MG/20 ML VIAL ONE (15:21)
[2024-09-17] MEDS ORDERED: Dexamethasone 20 MG/5 ML VIAL ONE (15:21)
[2024-09-17] MEDS ORDERED: PHENYLEPHRINE-NS 100 MCG/ML 10 ML SYRINGE ONE (15:21)
[2024-09-18 16:23] VITALS: BP 100/68; TEMP 97.6
== END 2024-09-18 19:25 | DRG 757 ==
LOC: ERS 20:07 → SURG A 23:24 → OBSVTOIN 09-13 08:38
PROVIDERS: ADMIT Student in an Organized Health Care Education/Training Program; ATTEND Internal Medicine
PROC: 0TP98DZ Removal of Intraluminal Device from Ureter, Via Natural or Artificial Opening Endoscopic (ICD-10-PCS; principal; 2024-09-17)
PROC: BT1F1ZZ Fluoroscopy of Left Kidney, Ureter and Bladder using Low Osmolar Contrast (ICD-10-PCS; 2024-09-17)
DX: B37.49 Other urogenital candidiasis (principal); G93.41 Metabolic encephalopathy; I50.32 Chronic diastolic (congestive) heart failure; E87.1 Hypo-osmolality and hyponatremia; Z88.0 Allergy status to penicillin; Z88.8 Allergy status to other drugs, medicaments and biological substances; E78.5 Hyperlipidemia, unspecified; F31.9 Bipolar disorder, unspecified; Z66 Do not resuscitate; D64.9 Anemia, unspecified; Z90.710 Acquired absence of both cervix and uterus; Z90.49 Acquired absence of other specified parts of digestive tract; Z98.890 Other specified postprocedural states; Z86.711 Personal history of pulmonary embolism; Z79.899 Other long term (current) drug therapy; Z79.01 Long term (current) use of anticoagulants
CPT/HCPCS: 36415; 51701; 71045; 74177; 74420; 80048; 80053; 81001; 82550; 83605; 83690; 83735; 84484; 85025; 85027; 85610; 85730; 87077; 87086; 93005; 96361; 96365; 96375; G0378; J0360; J0696; J1100; J2020; J2272; J2405; J2704; Q9967

== ENCOUNTER 2024-09-24 18:39 | Inpatient (IN) | payer MEDICARE ==
[2024-09-24 19:58] VITALS: BMI 30.5
[2024-09-24] MEDS ORDERED: Ondansetron ODT 4 MG TAB PO PRN (22:54)
[2024-09-24] MEDS: Ketorolac Tromethamine 30 MG (1 mL) VIAL IVP PRN (23:10)
[2024-09-25] MEDS: HYDROcodone/Acetaminophen 5/325 mg Tablet PO PRN (00:24)
[2024-09-25] MEDS: traMADol HCl 50 MG TAB PO PRN (02:06)
[2024-09-25] MEDS: Vancomycin (BATCH) 2 GM in Premix 1 BAG IVPB SCH (02:08)
[2024-09-25 05:38] LABS: #Basophils 0.07 10x3/uL (0.0-0.2); %Basophils 0.6 % (0.0-1.0); %Eosinophils 1.4 % (0.0-10.0); %Lymphocytes 28.1 % (21.0-51.0); %Monocytes 13.7 % (0.0-10.0); %Neutrophils 54.4 % (42.0-75.0); Hematocrit 32.1 % (36.0-47.0); Hemoglobin 10.2 g/dL (12.0-16.0); Mean Corpuscular HGB CONC 31.8 g/dL (32.0-36.0); Mean Corpuscular Volume 100.6 fL (78.0-98.0); Mean Platelet Volume 10.6 fL (7.4-10.4); Platelet Count 340 10x3/uL (130-400); RBC Distribution Width 17.7 % (11.5-14.5); Red Blood Cell (RBC) Count 3.19 mill/uL (4.20-5.40)
[2024-09-25 05:57] LABS: ALT (SGPT) 9 U/L (8-55); AST (SGOT) 14 U/L (5-34); Albumin 2.4 g/dL (3.4-4.8); Alkaline Phosphatase 93 U/L (40-110); Anion Gap 13 mmol/L (10-20); BUN (Urea Nitrogen) 10 mg/dL (9.8-20.1); Bilirubin, Total 0.3 mg/dL (0.2-1.2); Calc. Creatinine Clearance 78 mL/min (70-130); Calcium 9.3 mg/dL (7.8-10.44); Carbon Dioxide 30 mmol/L (23-31); Chloride 97 mmol/L (98-107); Estimated GFR 80; Globulin 4.5 g/dL (2.4-3.5); Glucose 80 mg/dL (83-110); Potassium 3.5 mmol/L (3.5-5.1); Protein, Total 6.9 g/dL (5.8-8.1); Sodium 136 mmol/L (136-145)
[2024-09-25] MEDS: Famotidine 20 MG TAB PO SCH (08:35)
[2024-09-25] MEDS: Apixaban 5 MG TAB PO SCH (08:36)
[2024-09-25] MEDS: Brimonidine Tartrate 0.2% Ophth Soln 5 ml Bottle EA EYE SCH (08:36)
[2024-09-25] MEDS: Timolol 0.5% Ophth Soln 5 ml Bottle EA EYE SCH (08:37)
[2024-09-25] MEDS: Famotidine/PF 20 mg/2ml Vial SLOW IVP SCH (08:38)
[2024-09-25] MEDS ORDERED: Vancomycin (BATCH) 1.5 GM in Premix 1 BAG IVPB SCH (09:00)
[2024-09-25] MEDS: Morphine 2 MG/ML VIAL SLOW IVP PRN (10:14)
[2024-09-25] MEDS: Ondansetron PF 4 MG/2 ML Vial IVP PRN (10:18)
[2024-09-25] MEDS ORDERED: GADOPENTETATE DIMEGLUMINE ONE ×2 (10:37)
[2024-09-25] MEDS: Morphine 2 MG/ML VIAL SLOW IVP SCH (10:59)
[2024-09-25] MEDS: Vancomycin 1 GM in Premix 1 BAG IVPB SCH (12:35)
[2024-09-25] MEDS: Divalproex Sodium 250 MG DR.TAB PO SCH (20:51)
[2024-09-25] MEDS: QUEtiapine 200 MG TAB PO SCH (20:51)
[2024-09-25] MEDS: Cholecalciferol 1,000 UNITS (25 MCG) TAB PO SCH (20:51)
[2024-09-25] MEDS: Ezetimibe 10 MG TAB PO SCH (20:52)
[2024-09-25] MEDS: Venlafaxine HCl XR 150 MG CAP PO SCH (20:56)
[2024-09-25] MEDS: Latanoprost 0.005% Ophth Soln 2.5 ml Bottle EA EYE SCH (23:09)
[2024-09-26] MEDS: clonazePAM 1 MG TAB PO PRN (02:20)
[2024-09-26 08:42] LABS: #Basophils 0.06 10x3/uL (0.0-0.2); %Basophils 0.4 % (0.0-1.0); %Lymphocytes 10.6 % (21.0-51.0); %Monocytes 11.5 % (0.0-10.0); %Neutrophils 75.6 % (42.0-75.0); Hematocrit 33.7 % (36.0-47.0); Hemoglobin 10.8 g/dL (12.0-16.0); Mean Corpuscular Hemoglobin 32.4 pg (27.0-31.0); Mean Corpuscular Volume 101.2 fL (78.0-98.0); Mean Platelet Volume 10.9 fL (7.4-10.4); Platelet Count 308 10x3/uL (130-400); RBC Distribution Width 17.9 % (11.5-14.5); Red Blood Cell (RBC) Count 3.33 mill/uL (4.20-5.40)
[2024-09-26 09:01] LABS: ALT (SGPT) 8 U/L (Less than 34); AST (SGOT) 25 U/L (11-34); Albumin 2.5 g/dL (3.1-4.5); Alkaline Phosphatase 103 U/L (40-110); Anion Gap 14 mmol/L (10-20); BUN (Urea Nitrogen) 13 mg/dL (9.8-20.1); Bilirubin, Total 0.4 mg/dL (0.3-1.2); Calc. Creatinine Clearance 86 mL/min (70-130); Calcium 9.1 mg/dL (7.8-10.44); Carbon Dioxide 28 mmol/L (23-31); Chloride 98 mmol/L (98-107); Estimated GFR 89; Globulin 4.4 g/dL (2.4-3.5); Glucose 116 mg/dL (83-110); Magnesium 1.8 mg/dL (1.6-2.6); Potassium 3.9 mmol/L (3.5-5.1); Protein, Total 6.9 g/dL (5.8-8.1); Sodium 136 mmol/L (136-145)
[2024-09-26] MEDS: Ketorolac Tromethamine 30 MG (1 mL) VIAL IVP SCH (12:46)
[2024-09-27 06:30] LABS: #Basophils 0.05 10x3/uL (0.0-0.2); %Basophils 0.7 % (0.0-1.0); %Eosinophils 1.7 % (0.0-10.0); %Lymphocytes 25.2 % (21.0-51.0); %Monocytes 13.6 % (0.0-10.0); %Neutrophils 57.9 % (42.0-75.0); Hematocrit 32.6 % (36.0-47.0); Hemoglobin 10.4 g/dL (12.0-16.0); Mean Corpuscular HGB CONC 31.9 g/dL (32.0-36.0); Mean Corpuscular Hemoglobin 31.5 pg (27.0-31.0); Mean Corpuscular Volume 98.8 fL (78.0-98.0); Mean Platelet Volume 11.3 fL (7.4-10.4); Platelet Count 296 10x3/uL (130-400); RBC Distribution Width 17.9 % (11.5-14.5)
[2024-09-27 06:56] LABS: Anion Gap 15 mmol/L (10-20); BUN (Urea Nitrogen) 9 mg/dL (9.8-20.1); Calc. Creatinine Clearance 100 mL/min (70-130); Carbon Dioxide 25 mmol/L (23-31); Chloride 100 mmol/L (98-107); Estimated GFR 92; Glucose 88 mg/dL (83-110); Magnesium 1.8 mg/dL (1.6-2.6); Potassium 4.5 mmol/L (3.5-5.1); Sodium 135 mmol/L (136-145)
[2024-09-27 07:19] LABS: Thyroid Stimulating Hormone 1.6901 uIU/mL (0.35-4.94)
[2024-09-27 13:08] LABS: INR-International Normal Ratio 1.2; Prothrombin Time 15.2 sec (12.0-14.7)
[2024-09-27] MEDS ORDERED: Midazolam HCl 2 mg/2 ml Vial ONE (14:20)
[2024-09-27] MEDS ORDERED: fentaNYL 50 mcg/mL 1 mL Vial ONE (14:20)
[2024-09-27] MEDS ORDERED: Lidocaine 1% w/Epinephrine 1:100K 20 ML VIAL ONE (15:19)
[2024-09-27] MEDS: Sodium Chloride 0.9% 500 ML IV SCH (19:00)
[2024-09-27 19:39] LABS: Hematocrit 29.7 % (36.0-47.0); Hemoglobin 9.4 g/dL (12.0-16.0); Mean Corpuscular HGB CONC 31.6 g/dL (32.0-36.0); Mean Corpuscular Hemoglobin 32.8 pg (27.0-31.0); Mean Corpuscular Volume 103.5 fL (78.0-98.0); Mean Platelet Volume 11.9 fL (7.4-10.4); Platelet Count 241 10x3/uL (130-400); RBC Distribution Width 18.6 % (11.5-14.5); Red Blood Cell (RBC) Count 2.87 mill/uL (4.20-5.40)
[2024-09-27 19:48] LABS: Anion Gap 14 mmol/L (10-20); BUN (Urea Nitrogen) 9 mg/dL (9.8-20.1); Calc. Creatinine Clearance 99 mL/min (70-130); Calcium 8.7 mg/dL (7.8-10.44); Carbon Dioxide 27 mmol/L (23-31); Chloride 101 mmol/L (98-107); Estimated GFR 92; Glucose 83 mg/dL (83-110); Sodium 137 mmol/L (136-145)
[2024-09-27] MEDS: Cefepime 1 GM in Sodium Chloride 0.9% 100 ML IVPB SCH (20:20)
[2024-09-27] MEDS: metroNIDAZOLE 500 MG in Premix 1 BAG IVPB SCH (20:37)
[2024-09-27] MEDS: Floranex 1 GM Packet PO SCH (20:38)
[2024-09-27] MEDS: Vancomycin (BATCH) 2 GM in Premix 1 BAG IVPB SCH (21:01)
[2024-09-28] MEDS: Polyethylene Glycol 3350 17 GM Packet PO PRN (02:24)
[2024-09-28 06:14] LABS: #Basophils 0.03 10x3/uL (0.0-0.2); %Basophils 0.5 % (0.0-1.0); %Eosinophils 1.5 % (0.0-10.0); %Lymphocytes 24.7 % (21.0-51.0); %Monocytes 15.3 % (0.0-10.0); %Neutrophils 57.2 % (42.0-75.0); Hematocrit 27.1 % (36.0-47.0); Hemoglobin 8.5 g/dL (12.0-16.0); Mean Corpuscular HGB CONC 31.4 g/dL (32.0-36.0); Mean Corpuscular Hemoglobin 32.2 pg (27.0-31.0); Mean Corpuscular Volume 102.7 fL (78.0-98.0); Mean Platelet Volume 11.6 fL (7.4-10.4); Platelet Count 275 10x3/uL (130-400); RBC Distribution Width 18.4 % (11.5-14.5); Red Blood Cell (RBC) Count 2.64 mill/uL (4.20-5.40)
[2024-09-28 06:31] LABS: Immunoglob - A (Total IgA) 295 mg/dL (69-517); Immunoglob - G (Total IgG) 1233 mg/dL (552-1631); Immunoglob - M (Total IgM) 104 mg/dL (33-293)
[2024-09-28 06:41] LABS: Anion Gap 14 mmol/L (10-20); BUN (Urea Nitrogen) 9 mg/dL (9.8-20.1); Calc. Creatinine Clearance 106 mL/min (70-130); Calcium 8.4 mg/dL (7.8-10.44); Carbon Dioxide 26 mmol/L (23-31); Chloride 103 mmol/L (98-107); Estimated GFR 93; Glucose 73 mg/dL (83-110); Magnesium 1.7 mg/dL (1.6-2.6); Potassium 3.5 mmol/L (3.5-5.1); Sodium 139 mmol/L (136-145)
[2024-09-28] MEDS: Vancomycin 1 GM in Premix 1 BAG IVPB SCH (08:52)
[2024-09-28] MEDS: Ketorolac Tromethamine 30 MG (1 mL) VIAL IVP SCH (12:04)
[2024-09-28 16:45] LABS: Hematocrit 29.5 % (36.0-47.0); Hemoglobin 9.6 g/dL (12.0-16.0); Mean Corpuscular HGB CONC 32.5 g/dL (32.0-36.0); Mean Corpuscular Hemoglobin 32.7 pg (27.0-31.0); Mean Corpuscular Volume 100.3 fL (78.0-98.0); Mean Platelet Volume 11.5 fL (7.4-10.4); Platelet Count 275 10x3/uL (130-400); RBC Distribution Width 18.4 % (11.5-14.5); Red Blood Cell (RBC) Count 2.94 mill/uL (4.20-5.40)
[2024-09-28 22:53] LABS: Hematocrit 28.5 % (36.0-47.0); Mean Corpuscular HGB CONC 31.6 g/dL (32.0-36.0); Mean Corpuscular Hemoglobin 32.1 pg (27.0-31.0); Mean Corpuscular Volume 101.8 fL (78.0-98.0); Mean Platelet Volume 12.3 fL (7.4-10.4); Platelet Count 300 10x3/uL (130-400)
[2024-09-29 05:53] LABS: Hematocrit 30.7 % (36.0-47.0); Hemoglobin 9.8 g/dL (12.0-16.0); Mean Corpuscular HGB CONC 31.9 g/dL (32.0-36.0); Mean Corpuscular Hemoglobin 31.7 pg (27.0-31.0); Mean Corpuscular Volume 99.4 fL (78.0-98.0); Mean Platelet Volume 12.1 fL (7.4-10.4); Platelet Count 288 10x3/uL (130-400); Red Blood Cell (RBC) Count 3.09 mill/uL (4.20-5.40)
[2024-09-29 05:55] LABS: #Basophils 0.05 10x3/uL (0.0-0.2); %Basophils 0.8 % (0.0-1.0); %Eosinophils 2.3 % (0.0-10.0); %Lymphocytes 20.3 % (21.0-51.0); %Monocytes 16.3 % (0.0-10.0); %Neutrophils 59.7 % (42.0-75.0); Hematocrit 30.1 % (36.0-47.0); Hemoglobin 9.6 g/dL (12.0-16.0); Mean Corpuscular HGB CONC 31.9 g/dL (32.0-36.0); Mean Corpuscular Hemoglobin 32.2 pg (27.0-31.0); Mean Platelet Volume 12.1 fL (7.4-10.4); Platelet Count 285 10x3/uL (130-400); Red Blood Cell (RBC) Count 2.98 mill/uL (4.20-5.40)
[2024-09-29 06:07] LABS: Vancomycin, Random 23.6 ug/mL (See Comment)
[2024-09-29 06:17] LABS: Anion Gap 12 mmol/L (10-20); BUN (Urea Nitrogen) 9 mg/dL (9.8-20.1); Calc. Creatinine Clearance 102 mL/min (70-130); Calcium 8.7 mg/dL (7.8-10.44); Carbon Dioxide 25 mmol/L (23-31); Chloride 105 mmol/L (98-107); Estimated GFR 93; Glucose 65 mg/dL (83-110); Magnesium 1.8 mg/dL (1.6-2.6); Potassium 3.5 mmol/L (3.5-5.1); Sodium 138 mmol/L (136-145)
[2024-09-29 09:27] LABS: Hematocrit 27.8 % (36.0-47.0); Hemoglobin 8.7 g/dL (12.0-16.0); Mean Corpuscular HGB CONC 31.3 g/dL (32.0-36.0); Mean Corpuscular Hemoglobin 32.5 pg (27.0-31.0); Mean Corpuscular Volume 103.7 fL (78.0-98.0); Mean Platelet Volume 10.9 fL (7.4-10.4); Platelet Count 283 10x3/uL (130-400); RBC Distribution Width 18.5 % (11.5-14.5); Red Blood Cell (RBC) Count 2.68 mill/uL (4.20-5.40)
[2024-09-29 11:14] LABS: Kappa Lambda Light Chain Ratio 1.11 (0.26-1.65); Kappa Light Chains 42.6 mg/L (3.3-19.4); Lambda Light Chain 38.4 mg/L (5.7-26.3)
[2024-09-29 18:09] LABS: Hematocrit 29.1 % (36.0-47.0); Hemoglobin 9.4 g/dL (12.0-16.0); Mean Corpuscular HGB CONC 32.3 g/dL (32.0-36.0); Mean Corpuscular Hemoglobin 32.3 pg (27.0-31.0); Mean Platelet Volume 11.7 fL (7.4-10.4); Platelet Count 267 10x3/uL (130-400); RBC Distribution Width 17.8 % (11.5-14.5); Red Blood Cell (RBC) Count 2.91 mill/uL (4.20-5.40)
[2024-09-29] MEDS: Vancomycin 1 GM in Premix 1 BAG IVPB SCH (20:20)
[2024-09-29] MEDS ORDERED: Vancomycin 1.5 GRAM/300 ML BAG 1.5 GM in Premix 1 BAG IVPB SCH (21:00)
[2024-09-29] MEDS: HYDROcodone/Acetaminophen 10/325 mg Tablet PO PRN (21:51)
[2024-09-30 06:10] LABS: #Basophils 0.03 10x3/uL (0.0-0.2); %Basophils 0.5 % (0.0-1.0); %Eosinophils 3.2 % (0.0-10.0); %Lymphocytes 26.5 % (21.0-51.0); %Neutrophils 52.1 % (42.0-75.0); Hematocrit 29.6 % (36.0-47.0); Hemoglobin 9.2 g/dL (12.0-16.0); Mean Corpuscular HGB CONC 31.1 g/dL (32.0-36.0); Mean Corpuscular Hemoglobin 32.1 pg (27.0-31.0); Mean Corpuscular Volume 103.1 fL (78.0-98.0); Mean Platelet Volume 12.4 fL (7.4-10.4); Platelet Count 272 10x3/uL (130-400); Red Blood Cell (RBC) Count 2.87 mill/uL (4.20-5.40)
[2024-09-30 07:14] LABS: Anion Gap 9 mmol/L (10-20); BUN (Urea Nitrogen) 6 mg/dL (9.8-20.1); Calc. Creatinine Clearance 112 mL/min (70-130); Calcium 8.6 mg/dL (7.8-10.44); Carbon Dioxide 27 mmol/L (23-31); Chloride 103 mmol/L (98-107); Estimated GFR 95; Glucose 75 mg/dL (83-110); Potassium 3.2 mmol/L (3.5-5.1); Sodium 136 mmol/L (136-145)
[2024-09-30 07:15] LABS: CRP,High Sensitivity (Inhouse) 3.28 mg/dL (< or = 0.5)
[2024-09-30] MEDS: metroNIDAZOLE 500 MG TAB PO SCH (15:42)
[2024-10-01] MEDS ORDERED: Bisacodyl 10 MG SUPP PR PRN (05:55)
[2024-10-01] MEDS: Potassium Chloride 20 MEQ TAB PO SCH (06:57)
[2024-10-01] MEDS: Calcium Carbonate 500 MG ChewTAB PO PRN (08:51)
[2024-10-01] MEDS ORDERED: Mag-Al 1200 mg/1200 mg/30 ML UDCUP PO PRN (09:04)
[2024-10-01] MEDS ORDERED: Lidocaine 1% PF 5 ML VIAL ONE (09:19)
[2024-10-01] MEDS ORDERED: Sodium Bicarbonate 2.5 MEQ/5 ML SDV ONE (09:19)
[2024-10-01 14:16] LABS: #Basophils 0.05 10x3/uL (0.0-0.2); %Basophils 0.8 % (0.0-1.0); %Eosinophils 4.7 % (0.0-10.0); %Lymphocytes 17.7 % (21.0-51.0); %Monocytes 14.7 % (0.0-10.0); %Neutrophils 61.8 % (42.0-75.0); Hematocrit 31.1 % (36.0-47.0); Hemoglobin 9.8 g/dL (12.0-16.0); Mean Corpuscular HGB CONC 31.5 g/dL (32.0-36.0); Mean Corpuscular Hemoglobin 31.9 pg (27.0-31.0); Mean Corpuscular Volume 101.3 fL (78.0-98.0); Mean Platelet Volume 11.8 fL (7.4-10.4); Platelet Count 313 10x3/uL (130-400); RBC Distribution Width 18.1 % (11.5-14.5); Red Blood Cell (RBC) Count 3.07 mill/uL (4.20-5.40)
[2024-10-01 14:32] LABS: Vancomycin, Random 19.1 ug/mL (See Comment)
[2024-10-01 14:36] LABS: ALT (SGPT) Less than 7 U/L (Less than 34); AST (SGOT) 13 U/L (11-34); Albumin 1.9 g/dL (3.1-4.5); Alkaline Phosphatase 75 U/L (40-110); Anion Gap 8 mmol/L (10-20); BUN (Urea Nitrogen) 6 mg/dL (9.8-20.1); Bilirubin, Total 0.2 mg/dL (0.3-1.2); Calc. Creatinine Clearance 100 mL/min (70-130); Calcium 8.9 mg/dL (7.8-10.44); Carbon Dioxide 26 mmol/L (23-31); Chloride 107 mmol/L (98-107); Estimated GFR 92; Globulin 3.6 g/dL (2.4-3.5); Glucose 113 mg/dL (83-110); Potassium 4.3 mmol/L (3.5-5.1); Protein, Total 5.5 g/dL (5.8-8.1); Sodium 137 mmol/L (136-145)
[2024-10-01 15:36] LABS: A/G Ratio 0.7 (0.7-1.7); Albumin 2.3 g/dL (2.9-4.4); Alpha 1 0.3 g/dL (0.0-0.4); Alpha 2 0.7 g/dL (0.4-1.0); Gamma 1.4 g/dL (0.4-1.8); Globulin, Total 3.5 g/dL (2.2-3.9); M-Spike Not Observed g/dL (Not Observed); Protein Electrophoresis Intrp Note: (.)
[2024-10-01] MEDS: Cefepime 2 GM in Sodium Chloride 0.9% 100 ML IVPB SCH (20:45)
[2024-10-01] MEDS: Apixaban 5 MG TAB PO SCH (20:46)
[2024-10-02 13:22] VITALS: BMI 30.5
[2024-10-03] MEDS: cefTRIAXone\\ROCEPHIN 2 GM in Sodium Chloride 0.9% 100 ML IVPB SCH (09:51)
[2024-10-03] MEDS: Sodium Chloride 0.9% 500 ML IV SCH (10:09)
[2024-10-03] MEDS: cefTRIAXone Sodium 2,000 MG in Syringe 0 ML IVPB SCH (10:13)
[2024-10-03] MEDS: DAPTOmycin 500 MG in Sodium Chloride 0.9% 50 ML IVPB SCH (12:42)
[2024-10-03 19:52] VITALS: BP 115/75; TEMP 98.1
== END 2024-10-03 19:45 | DRG 477 ==
LOC: INTOOBSV 19:39 → T4-A 19:39 → OBSVTOIN 09-25 17:54
PROVIDERS: ADMIT Student in an Organized Health Care Education/Training Program; ATTEND Internal Medicine
PROC: 0PB43ZX Excision of Thoracic Vertebra, Percutaneous Approach, Diagnostic (ICD-10-PCS; principal; 2024-09-27)
PROC: 0R9 Upper Joints, Drainage (ICD-10-PCS; 2024-09-27)
PROC: 02HV33Z Insertion of Infusion Device into Superior Vena Cava, Percutaneous Approach (ICD-10-PCS; 2024-10-01)
PROC: B518ZZA Fluoroscopy of Superior Vena Cava, Guidance (ICD-10-PCS; 2024-10-01)
DX: M84.48XA Pathological fracture, other site, initial encounter for fracture (principal); J96.00 Acute respiratory failure, unspecified whether with hypoxia or hypercapnia; D62 Acute posthemorrhagic anemia; I50.32 Chronic diastolic (congestive) heart failure; G99.2 Myelopathy in diseases classified elsewhere; E78.5 Hyperlipidemia, unspecified; F31.9 Bipolar disorder, unspecified; M48.04 Spinal stenosis, thoracic region; W18.30XA Fall on same level, unspecified, initial encounter; Y92.239 Unspecified place in hospital as the place of occurrence of the external cause; Z88.0 Allergy status to penicillin; Z88.8 Allergy status to other drugs, medicaments and biological substances; Z86.711 Personal history of pulmonary embolism; Z79.01 Long term (current) use of anticoagulants; Z90.710 Acquired absence of both cervix and uterus; Z90.49 Acquired absence of other specified parts of digestive tract; Z87.440 Personal history of urinary (tract) infections
CPT/HCPCS: 20225; 36415; 36416; 36573; 70450; 71045; 71046; 71250; 72125; 72157; 72158; 77012; 80048; 80053; 80202; 82607; 83735; 83883; 84155; 84165; 84443; 85025; 85610; 85730; 86141; 86850; 86900; 86901; 87040; 87070; 87116; 87205; 87206; 88112; 88305; 88307; 88333; 96374; 96375; 96376; A9579; C1751; G0378; J0692; J0696; J0878; J1885; J2250; J2272; J2405; J3010; J3370; J3490; J7030